=== PATIENT | male | born 1990 | race Caucasian/White ===

== ENCOUNTER 2017-01-12 19:29 | Inpatient (IN) ==
[2017-01-12 19:49] LABS: Bilirubin,Urine Negative (Negative); Blood,Urine Negative (Negative); Clarity,Urine Clear (Clear); Color,Urine Yellow (Yellow); Glucose,Urine (UA) Normal (Normal); Ketones,Urine 15 mg/dL (Negative); Leukocyte Esterase,Urine Negative (Negative); Nitrite,Urine Negative (Negative); Protein,Urine 30 mg/dL (Neg-Trace); Specific Gravity,Urine 1.024 (1.010-1.025); Urobilinogen,Urine Normal (Normal)
[2017-01-12 19:51] LABS: Bacteria,Urine None Seen per hpf (None-Few); Hyaline Casts,Urine None Seen per lpf (None-Few); Squamous Epithelial Cell,Urine Moderate per lpf (None-Few); WBC,Urine 0-3 per hpf (0-3)
[2017-01-12 19:56] LABS: Amphetamine Screen,Urine Negative ng/mL (Cutoff=1000); Barbiturate Screen,Urine Negative ng/mL (Cutoff=200); Benzodiazepines Screen,Urine Negative ng/mL (Cutoff=200); Cannabinoid Screen,Urine Negative ng/mL (Cutoff = 50); Cocaine Screen,Urine Negative ng/mL (Cutoff= 300); Opiate Screen,Urine Negative ng/mL (Cutoff=300); Phencyclidine Screen,Urine Negative ng/mL (Cutoff=25)
[2017-01-12 20:28] LABS: Basophils % 0.4 %; Eosinophils % 0.2 %; Hematocrit 46.3 % (37.5-50.1); Hemoglobin 15.4 g/dL (12.9-16.9); Immature Granulocytes % 0.7 % (0-4); Lymphocytes # 1.8 K/mcL (0.6-4.6); Lymphocytes % 16.9 %; Mean Corpuscular HGB Conc 33.3 g/dL (31.6-35.5); Mean Corpuscular Hemoglobin 29.7 pg (28.0-33.3); Mean Corpuscular Volume 89.2 fL (83.0-100.0); Mean Platelet Volume 8.8 fL (9.4-12.4); Monocytes # 1.2 K/mcL (0.0-1.3); Monocytes % 11.4 %; Neutrophils # 7.6 K/mcL (1.6-8.9); Platelet Count 276 K/mcL (140-400); Red Blood Count 5.19 M/mcL (4.19-5.50); Red Cell Distribution Width 12.5 % (11.5-14.5); Segmented Neutrophils % 70.4 %
[2017-01-12 20:37] LABS: BUN/Creatinine Ratio 15 (6-26); Blood Urea Nitrogen 14 mg/dL (8-26); Calcium 10.4 mg/dL (8.6-10.8); Carbon Dioxide 21 mEq/L (19-29); Chloride 103 mEq/L (98-109); Glucose 87 mg/dL (70-99); Osmolality,Calculated 286 (280-300); Potassium 3.8 mEq/L (3.5-4.5); Sodium 138 mEq/L (136-145); eGFR For African Americans > 60 (> 60); eGFR For Non-African Americans > 60 (> 60)
[2017-01-12 20:38] LABS: Acetaminophen < 1.0 mcg/mL (10-30); Ethanol < 10 mg/dL (0-10); Salicylate < 5.0 mg/dL (15-30)
--- NOTE | 2017-01-12 22:00 | Emergency Department Note ---
Disposition Clinical Impression: Acute psychosis Disposition: Admitted As Inpatient Condition: Good Psych HPI - General Chief Complaint: ED Psychiatric Symptoms Stated Complaint: Psych evaluation Time Seen by Provider: 01/12/17 19:38 Source: patient, EMS Limitations: altered mental status Nursing Notes Reviewed: Yes Vital Signs Reviewed: Yes - History of Present Illness HPI Narrative: 26-year-old male brought in by family for concerns of acute psychotic break. Patient has a long history of schizophrenia as well as bipolar disorder and anxiety. Patient was recently discharged from an inpatient psych facility within the past few days. Family states the patient started speaking with a grandfather as well as starting to get agitated with family members. Patient denies suicidal or homicidal ideation. Patient has apparently become aggressive during his psychotic breaks in the past. - Related Data Home Medications Medication Instructions Recorded Confirmed Benztropine [Cogentin] 1 mg PO BID 01/12/17 01/13/17 Cholecalciferol (Vitamin D3) 5,000 unit PO DAILY 01/12/17 01/13/17 [Vitamin D3] Divalproex (12 HR) [Depakote (12 1,000 mg PO BID 01/12/17 01/13/17 HR)] [place] Carbonate 600 mg PO BID 01/12/17 01/13/17 Divalproex Sodium [Depakote] 1,250 mg PO HS 01/13/17 01/13/17 Esomeprazole Magnesium [Nexium] 20 mg PO DAILY 01/13/17 01/13/17 Melatonin 3 mg PO HS 01/13/17 01/13/17 Metoprolol [Lopressor] 50 mg PO BID 01/13/17 01/13/17 Mv-Mn/FA/Vit K/Lycop/Lut/Coq10 1 cap PO DAILY 01/13/17 01/13/17 [Daily Multivitamin Capsule] RisperiDONE [Risperdal] 4 mg PO BID 01/13/17 01/13/17 Allergies Allergy/AdvReac Type Severity Reaction Status Date / Time No Known Allergies Allergy Verified 01/12/17 19:59 All systems ED: reviewed and negative except as stated. Constitutional: Denies: fever, chills, weakness, weight change Cardiovascular: Denies: chest pain, palpitations, dyspnea on exertion Respiratory: Denies: cough, dyspnea, wheezes Gastrointestinal: Denies: abdominal pain, nausea, vomiting, diarrhea Musculoskeletal: Denies: back pain, neck pain Psychiatric: Reports: anxiety, auditory hallucinations, visual hallucinations. Denies: depression, suicidal thoughts, homicidal thoughts Past Medical History - Past Medical History Attestation: Yes The following information was validated with the patient. Source: patient Medical history: Reports: no medical history Psychiatric history: Reports: bipolar, schizophrenia - Social History Smoking Status: Never smoker Smokeless Tobacco Status: No Alcohol use: Reports: none Drug use: Reports: none Physical Exam General: Alert and in no acute distress Skin: Warm, dry, intact Head: Normocephalic and atraumatic Neck: Supple, trachea midline and no tenderness Cardiovascular: RRR, no murmur, normal perfusion Respiratory: CTAB, no wheezing, cough, or respiratory distress Musculoskeletal: Normal strength, no tenderness, swelling or deformity GI: Soft, nontender, nondistended. Bowel sounds present Neuro: No focal deficits noted on exam - General Limitations: altered mental status General appearance: alert, appears intoxicated Course Vital Signs Temperature 98.2 F 01/12/17 19:37 Pulse Rate 124 01/12/17 19:37 Respiratory Rate 16 01/12/17 19:37 Blood Pressure 169/110 01/12/17 19:37 O2 Sat by Pulse Oximetry 94 L 01/12/17 19:37 Temperature 98.2 F 01/14/17 08:27 Pulse Rate 101 01/14/17 08:27 Respiratory Rate 16 01/14/17 08:27 Blood Pressure 138/86 01/14/17 08:27 O2 Sat by Pulse Oximetry 95 01/13/17 06:38 Oxygen Delivery Oxygen Delivery Room Air Psych - MDM Narrative Medical decision making narrative: Patient medically cleared and waiting to be seen by behavioral health. - Medical Records Medical records reviewed: Yes I reviewed the patient's medical records. - Lab Data Lab results reviewed: Yes I reviewed the patient's lab results. Result diagrams: 01/12/17 20:00 01/12/17 20:00 Lab Results 01/12/17 01/12/17 01/12/17 Range/Units 19:36 19:36 20:00 WBC 10.7 (4.3-11.1) K/mcL RBC 5.19 (4.19-5.50) M/mcL Hgb 15.4 (12.9-16.9) g/dL Hct 46.3 (37.5-50.1) % MCV 89.2 (83.0-100.0) fL MCH 29.7 (28.0-33.3) pg MCHC 33.3 (31.6-35.5) g/dL RDW 12.5 (11.5-14.5) % Plt Count 276 (140-400) K/mcL MPV 8.8 L (9.4-12.4) fL Immature Gran % 0.7 (0-4) % Seg Neutrophils % 70.4 % Lymphocytes % 16.9 % Monocytes % 11.4 % Eosinophils % 0.2 % Basophils % 0.4 % Neutrophils # 7.6 (1.6-8.9) K/mcL Lymphocytes # 1.8 (0.6-4.6) K/mcL Monocytes # 1.2 (0.0-1.3) K/mcL Eosinophils # 0.0 (0.0-0.6) K/mcL Basophils # 0.0 (0.0-0.2) K/mcL Sodium (136-145) mEq/L Potassium (3.5-4.5) mEq/L Chloride (98-109) mEq/L Carbon Dioxide (19-29) mEq/L BUN (8-26) mg/dL Creatinine (0.72-1.25) mg/dL Est GFR ( Amer) (> 60) Est GFR (Non-Af Amer) (> 60) BUN/Creatinine Ratio (6-26) Glucose (70-99) mg/dL Calculated Osmolality (280-300) Calcium (8.6-10.8) mg/dL Urine Color Yellow (Yellow) Urine Clarity Clear (Clear) Urine pH 6.0 (5.0-8.0) pH Units Ur Specific [place] 1.024 (1.010-1.025) Urine Protein 30 H (Neg-Trace) mg/dL Urine Glucose (UA) Normal (Normal) mg/dL Urine Ketones 15 H (Negative) mg/dL Urine Blood Negative (Negative) Urine Nitrite Negative (Negative) Urine Bilirubin Negative (Negative) Urine Urobilinogen Normal (Normal) mg/dL Ur Leukocyte Esterase Negative (Negative) Urine Microscopic RBC 3-5 H (0-3) per hpf Urine Microscopic WBC 0-3 (0-3) per hpf Ur Squamous Epith Cells Moderate H (None-Few) per lpf Urine Bacteria None Seen (None-Few) per hpf Hyaline Casts None Seen (None-Few) per lpf Salicylates (15-30) mg/dL Urine Opiates Screen Negative (Rhlmly=705) ng/mL Acetaminophen (10-30) mcg/mL Ur Barbiturates Screen Negative (Bmcxkz=166) ng/mL Valproic Acid (50-100) mcg/mL Ur Phencyclidine Scrn Negative (Cutoff=25) ng/mL Ur Amphetamines Screen Negative (Zwdsjl=1341) ng/mL U Benzodiazepines Scrn Negative (Hmwiwm=655) ng/mL [place] (0.6-1.2) mEq/L Urine Cocaine Screen Negative (Cutoff= 300) ng/mL U Marijuana (THC) Screen Negative (Cutoff = 50) ng/mL Ethyl Alcohol (0-10) mg/dL 01/12/17 01/12/17 Range/Units 20:00 20:00 WBC (4.3-11.1) K/mcL RBC (4.19-5.50) M/mcL Hgb (12.9-16.9) g/dL Hct (37.5-50.1) % MCV (83.0-100.0) fL MCH (28.0-33.3) pg MCHC (31.6-35.5) g/dL RDW (11.5-14.5) % Plt Count (140-400) K/mcL MPV (9.4-12.4) fL Immature Gran % (0-4) % Seg Neutrophils % % Lymphocytes % % Monocytes % % Eosinophils % % Basophils % % Neutrophils # (1.6-8.9) K/mcL Lymphocytes # (0.6-4.6) K/mcL Monocytes # (0.0-1.3) K/mcL Eosinophils # (0.0-0.6) K/mcL Basophils # (0.0-0.2) K/mcL Sodium 138 (136-145) mEq/L Potassium 3.8 (3.5-4.5) mEq/L Chloride 103 (98-109) mEq/L Carbon Dioxide 21 (19-29) mEq/L BUN 14 (8-26) mg/dL Creatinine 0.93 (0.72-1.25) mg/dL Est GFR ( Amer) > 60 (> 60) Est GFR (Non-Af Amer) > 60 (> 60) BUN/Creatinine Ratio 15 (6-26) Glucose 87 (70-99) mg/dL Calculated Osmolality 286 (280-300) Calcium 10.4 (8.6-10.8) mg/dL Urine Color (Yellow) Urine Clarity (Clear) Urine pH (5.0-8.0) pH Units Ur Specific [place] (1.010-1.025) Urine Protein (Neg-Trace) mg/dL Urine Glucose (UA) (Normal) mg/dL Urine Ketones (Negative) mg/dL Urine Blood (Negative) Urine Nitrite (Negative) Urine Bilirubin (Negative) Urine Urobilinogen (Normal) mg/dL Ur Leukocyte Esterase (Negative) Urine Microscopic RBC (0-3) per hpf Urine Microscopic WBC (0-3) per hpf Ur Squamous Epith Cells (None-Few) per lpf Urine Bacteria (None-Few) per hpf Hyaline Casts (None-Few) per lpf Salicylates < 5.0 L (15-30) mg/dL Urine Opiates Screen (Pyhawo=826) ng/mL Acetaminophen < 1.0 L (10-30) mcg/mL Ur Barbiturates Screen (Gnbrua=451) ng/mL Valproic Acid 58.55 (50-100) mcg/mL Ur Phencyclidine Scrn (Cutoff=25) ng/mL Ur Amphetamines Screen (Pzrnbk=1122) ng/mL U Benzodiazepines Scrn (Lojfer=722) ng/mL [place] 0.4 L (0.6-1.2) mEq/L Urine Cocaine Screen (Cutoff= 300) ng/mL U Marijuana (THC) Screen (Cutoff = 50) ng/mL Ethyl Alcohol < 10 (0-10) mg/dL Psychiatric Medical Clearance - Medical Clearance Checklist Medical History: No Social History Section defined Current Vitals: Last Vital Signs Temp 98.2 F 01/14/17 08:27 Pulse 101 01/14/17 08:27 Resp 16 01/14/17 08:27 BP 138/86 01/14/17 08:27 Pulse Ox 95 01/13/17 06:38 Abnormal Labs: Abnormal lab results MPV 8.8 fL (9.4-12.4) L 01/12/17 20:00 Urine Protein 30 mg/dL (Neg-Trace) H 03/20/17 19:36 Urine Ketones 15 mg/dL (Negative) H 01/12/17 19:36 Urine Microscopic RBC 3-5 per hpf (0-3) H 01/12/17 19:36 Ur Squamous Epith Cells Moderate per lpf (None-Few) H 01/12/17 19:36 Salicylates < 5.0 mg/dL (15-30) L 01/12/17 20:00 Acetaminophen < 1.0 mcg/mL (10-30) L 01/12/17 20:00 [place] 0.4 mEq/L (0.6-1.2) L 01/12/17 20:00 Statement of Medical Clearance: I have evaluated the patient, reviewed diagnostic information, and certify that the patient's medical condition is sufficiently stable that transfer to the psychiatric unit does not pose a significant risk of deterioration.
[2017-01-12 23:09] LABS: Valproate 58.55 mcg/mL (50-100)
[2017-01-13] MEDS ORDERED: Tdap (Boostrix) Vaccine 0.5 ML SYRINGE IM ONE (09:41)
[2017-01-13] MEDS ORDERED: cephALEXin 250 MG CAPSULE PO ONE (09:42)
--- NOTE | 2017-01-13 09:49 | Emergency Department Note ---
Disposition Clinical Impression: Acute psychosis Disposition: Admitted As Inpatient Condition: Good Psych HPI - General Chief Complaint: ED Psychiatric Symptoms Stated Complaint: Psych evaluation Time Seen by Provider: 01/12/17 19:38 Source: patient, EMS - Related Data Home Medications Medication Instructions Recorded Confirmed Benztropine [Cogentin] 1 mg PO BID 01/12/17 01/13/17 Cholecalciferol (Vitamin D3) 5,000 unit PO DAILY 01/12/17 01/13/17 [Vitamin D3] Divalproex (12 HR) [Depakote (12 1,000 mg PO BID 01/12/17 01/13/17 HR)] [place] Carbonate 600 mg PO BID 01/12/17 01/13/17 Divalproex Sodium [Depakote] 1,250 mg PO HS 01/13/17 01/13/17 Esomeprazole Magnesium [Nexium] 20 mg PO DAILY 01/13/17 01/13/17 Melatonin 3 mg PO HS 01/13/17 01/13/17 Metoprolol [Lopressor] 50 mg PO BID 01/13/17 01/13/17 Mv-Mn/FA/Vit K/Lycop/Lut/Coq10 1 cap PO DAILY 01/13/17 01/13/17 [Daily Multivitamin Capsule] RisperiDONE [Risperdal] 4 mg PO BID 01/13/17 01/13/17 Allergies Allergy/AdvReac Type Severity Reaction Status Date / Time No Known Allergies Allergy Verified 01/12/17 19:59 Constitutional: Denies: fever, chills, weakness, weight change Cardiovascular: Denies: chest pain, palpitations, dyspnea on exertion Respiratory: Denies: cough, dyspnea, wheezes Gastrointestinal: Denies: abdominal pain, nausea, vomiting, diarrhea Musculoskeletal: Denies: back pain, neck pain Psychiatric: Reports: anxiety, auditory hallucinations, visual hallucinations. Denies: depression, suicidal thoughts, homicidal thoughts Past Medical History - Past Medical History Medical history: Reports: no medical history Psychiatric history: Reports: bipolar, schizophrenia - Social History Smoking Status: Never smoker Smokeless Tobacco Status: No Alcohol use: Reports: none Drug use: Reports: none Physical Exam - General Limitations: altered mental status General appearance: alert, appears intoxicated Course Course Narrative: Assumed care of this patient from Theo Tee PA-C at 06:00. Report received. The patient has been seen by [facility] but the Psychiatrist did not feel that the patient required admission. Plan was to have the patient evaluated by the [facility] and discharged to home with his mom or to a homeless halfway if his mom is unable to care for him. Patient has been seen by the [facility] Leni. She is very concerned about this patient's apparent acute psychosis. She has spoken with his family as well. She recommends that I consult [facility] again. Vital Signs Temperature 98.2 F 01/12/17 19:37 Pulse Rate 124 01/12/17 19:37 Respiratory Rate 16 01/12/17 19:37 Blood Pressure 169/110 01/12/17 19:37 O2 Sat by Pulse Oximetry 94 L 01/12/17 19:37 Temperature 97.6 F 01/16/17 08:47 Pulse Rate 94 01/16/17 08:47 Respiratory Rate 18 01/16/17 08:47 Blood Pressure 122/78 01/16/17 08:47 O2 Sat by Pulse Oximetry 95 01/13/17 06:38 Oxygen Delivery Oxygen Delivery Room Air Psych - Lab Data Result diagrams: 01/12/17 20:00 01/16/17 03:12 Lab Results 01/12/17 01/12/17 01/12/17 Range/Units 19:36 19:36 20:00 WBC 10.7 (4.3-11.1) K/mcL RBC 5.19 (4.19-5.50) M/mcL Hgb 15.4 (12.9-16.9) g/dL Hct 46.3 (37.5-50.1) % MCV 89.2 (83.0-100.0) fL MCH 29.7 (28.0-33.3) pg MCHC 33.3 (31.6-35.5) g/dL RDW 12.5 (11.5-14.5) % Plt Count 276 (140-400) K/mcL MPV 8.8 L (9.4-12.4) fL Immature Gran % 0.7 (0-4) % Seg Neutrophils % 70.4 % Lymphocytes % 16.9 % Monocytes % 11.4 % Eosinophils % 0.2 % Basophils % 0.4 % Neutrophils # 7.6 (1.6-8.9) K/mcL Lymphocytes # 1.8 (0.6-4.6) K/mcL Monocytes # 1.2 (0.0-1.3) K/mcL Eosinophils # 0.0 (0.0-0.6) K/mcL Basophils # 0.0 (0.0-0.2) K/mcL Sodium (136-145) mEq/L Potassium (3.5-4.5) mEq/L Chloride (98-109) mEq/L Carbon Dioxide (19-29) mEq/L BUN (8-26) mg/dL Creatinine (0.72-1.25) mg/dL Est GFR ( Amer) (> 60) Est GFR (Non-Af Amer) (> 60) BUN/Creatinine Ratio (6-26) Glucose (70-99) mg/dL Calculated Osmolality (280-300) Calcium (8.6-10.8) mg/dL Urine Color Yellow (Yellow) Urine Clarity Clear (Clear) Urine pH 6.0 (5.0-8.0) pH Units Ur Specific [place] 1.024 (1.010-1.025) Urine Protein 30 H (Neg-Trace) mg/dL Urine Glucose (UA) Normal (Normal) mg/dL Urine Ketones 15 H (Negative) mg/dL Urine Blood Negative (Negative) Urine Nitrite Negative (Negative) Urine Bilirubin Negative (Negative) Urine Urobilinogen Normal (Normal) mg/dL Ur Leukocyte Esterase Negative (Negative) Urine Microscopic RBC 3-5 H (0-3) per hpf Urine Microscopic WBC 0-3 (0-3) per hpf Ur Squamous Epith Cells Moderate H (None-Few) per lpf Urine Bacteria None Seen (None-Few) per hpf Hyaline Casts None Seen (None-Few) per lpf Salicylates (15-30) mg/dL Urine Opiates Screen Negative (Paeffc=787) ng/mL Acetaminophen (10-30) mcg/mL Ur Barbiturates Screen Negative (Rbuubo=463) ng/mL Valproic Acid (50-100) mcg/mL Ur Phencyclidine Scrn Negative (Cutoff=25) ng/mL Ur Amphetamines Screen Negative (Thynth=2952) ng/mL U Benzodiazepines Scrn Negative (Flsgdz=133) ng/mL [place] (0.6-1.2) mEq/L Urine Cocaine Screen Negative (Cutoff= 300) ng/mL U Marijuana (THC) Screen Negative (Cutoff = 50) ng/mL Ethyl Alcohol (0-10) mg/dL 01/12/17 01/12/17 Range/Units 20:00 20:00 WBC (4.3-11.1) K/mcL RBC (4.19-5.50) M/mcL Hgb (12.9-16.9) g/dL Hct (37.5-50.1) % MCV (83.0-100.0) fL MCH (28.0-33.3) pg MCHC (31.6-35.5) g/dL RDW (11.5-14.5) % Plt Count (140-400) K/mcL MPV (9.4-12.4) fL Immature Gran % (0-4) % Seg Neutrophils % % Lymphocytes % % Monocytes % % Eosinophils % % Basophils % % Neutrophils # (1.6-8.9) K/mcL Lymphocytes # (0.6-4.6) K/mcL Monocytes # (0.0-1.3) K/mcL Eosinophils # (0.0-0.6) K/mcL Basophils # (0.0-0.2) K/mcL Sodium 138 (136-145) mEq/L Potassium 3.8 (3.5-4.5) mEq/L Chloride 103 (98-109) mEq/L Carbon Dioxide 21 (19-29) mEq/L BUN 14 (8-26) mg/dL Creatinine 0.93 (0.72-1.25) mg/dL Est GFR ( Amer) > 60 (> 60) Est GFR (Non-Af Amer) > 60 (> 60) BUN/Creatinine Ratio 15 (6-26) Glucose 87 (70-99) mg/dL Calculated Osmolality 286 (280-300) Calcium 10.4 (8.6-10.8) mg/dL Urine Color (Yellow) Urine Clarity (Clear) Urine pH (5.0-8.0) pH Units Ur Specific [place] (1.010-1.025) Urine Protein (Neg-Trace) mg/dL Urine Glucose (UA) (Normal) mg/dL Urine Ketones (Negative) mg/dL Urine Blood (Negative) Urine Nitrite (Negative) Urine Bilirubin (Negative) Urine Urobilinogen (Normal) mg/dL Ur Leukocyte Esterase (Negative) Urine Microscopic RBC (0-3) per hpf Urine Microscopic WBC (0-3) per hpf Ur Squamous Epith Cells (None-Few) per lpf Urine Bacteria (None-Few) per hpf Hyaline Casts (None-Few) per lpf Salicylates < 5.0 L (15-30) mg/dL Urine Opiates Screen (Zqlvuy=954) ng/mL Acetaminophen < 1.0 L (10-30) mcg/mL Ur Barbiturates Screen (Azhwrt=442) ng/mL Valproic Acid 58.55 (50-100) mcg/mL Ur Phencyclidine Scrn (Cutoff=25) ng/mL Ur Amphetamines Screen (Msuqfy=3270) ng/mL U Benzodiazepines Scrn (Lengyl=180) ng/mL [place] 0.4 L (0.6-1.2) mEq/L Urine Cocaine Screen (Cutoff= 300) ng/mL U Marijuana (THC) Screen (Cutoff = 50) ng/mL Ethyl Alcohol < 10 (0-10) mg/dL Psychiatric Medical Clearance - Medical Clearance Checklist Medical History: No Social History Section defined Current Vitals: Last Vital Signs Temp 97.6 F 01/16/17 08:47 Pulse 94 01/16/17 08:47 Resp 18 01/16/17 08:47 BP 122/78 01/16/17 08:47 Pulse Ox 95 01/13/17 06:38 Abnormal Labs: Abnormal lab results MPV 8.8 fL (9.4-12.4) L 01/12/17 20:00 POC Glucose 115 (58-89) H 01/16/17 08:25 HDL Cholesterol 36 mg/dL (40-59) L 01/16/17 03:12 Urine Protein 30 mg/dL (Neg-Trace) H 01/12/17 19:36 Urine Ketones 15 mg/dL (Negative) H 01/12/17 19:36 Urine Microscopic RBC 3-5 per hpf (0-3) H 01/12/17 19:36 Ur Squamous Epith Cells Moderate per lpf (None-Few) H 01/12/17 19:36 Salicylates < 5.0 mg/dL (15-30) L 01/12/17 20:00 Acetaminophen < 1.0 mcg/mL (10-30) L 01/12/17 20:00 [place] 0.4 mEq/L (0.6-1.2) L 01/12/17 20:00 Statement of Medical Clearance: I have evaluated the patient, reviewed diagnostic information, and certify that the patient's medical condition is sufficiently stable that transfer to the psychiatric unit does not pose a significant risk of deterioration.
--- NOTE | 2017-01-13 10:27 | Emergency Department Note ---
Disposition Clinical Impression: Acute psychosis Disposition: Admitted As Inpatient Condition: Good General Adult HPI - General Chief complaint: ED Psychiatric Symptoms Stated complaint: Psych evaluation Time Seen by Provider: 01/12/17 19:38 Source: patient, EMS Limitations: altered mental status - History of Present Illness Pain Scale: 0 - Related Data Home Medications Medication Instructions Recorded Confirmed Benztropine [Cogentin] 1 mg PO BID 01/12/17 01/13/17 Cholecalciferol (Vitamin D3) 5,000 unit PO DAILY 01/12/17 01/13/17 [Vitamin D3] Divalproex (12 HR) [Depakote (12 1,000 mg PO BID 01/12/17 01/13/17 HR)] [place] Carbonate 600 mg PO BID 01/12/17 01/13/17 Divalproex Sodium [Depakote] 1,250 mg PO HS 01/13/17 01/13/17 Esomeprazole Magnesium [Nexium] 20 mg PO DAILY 01/13/17 01/13/17 Melatonin 3 mg PO HS 01/13/17 01/13/17 Metoprolol [Lopressor] 50 mg PO BID 01/13/17 01/13/17 Mv-Mn/FA/Vit K/Lycop/Lut/Coq10 1 cap PO DAILY 01/13/17 01/13/17 [Daily Multivitamin Capsule] RisperiDONE [Risperdal] 4 mg PO BID 01/13/17 01/13/17 Allergies Allergy/AdvReac Type Severity Reaction Status Date / Time No Known Allergies Allergy Verified 01/12/17 19:59 Constitutional: Denies: fever, chills, weakness, weight change Cardiovascular: Denies: chest pain, palpitations, dyspnea on exertion Respiratory: Denies: cough, dyspnea, wheezes Gastrointestinal: Denies: abdominal pain, nausea, vomiting, diarrhea Musculoskeletal: Denies: back pain, neck pain Psychiatric: Reports: anxiety, auditory hallucinations, visual hallucinations. Denies: depression, suicidal thoughts, homicidal thoughts Past Medical History - Past Medical History Medical history: Reports: no medical history Psychiatric history: Reports: bipolar, schizophrenia - Social History Smoking Status: Never smoker Smokeless Tobacco Status: No Alcohol use: Reports: none Drug use: Reports: none Physical Exam - General Limitations: altered mental status General appearance: alert, appears intoxicated Course - Reevaluation(s) Reevaluation #1: 26-year-old with active psychosis was been here for several hours awaiting a bed at the [facility]. Continues to actively hallucinates and with paranoia delusions. Time: 10:26 Vital Signs Temperature 98.2 F 01/12/17 19:37 Pulse Rate 124 01/12/17 19:37 Respiratory Rate 16 01/12/17 19:37 Blood Pressure 169/110 01/12/17 19:37 O2 Sat by Pulse Oximetry 94 L 01/12/17 19:37 Temperature 98.4 F 01/13/17 11:55 Pulse Rate 96 01/13/17 11:55 Respiratory Rate 16 01/13/17 12:05 Blood Pressure 158/95 01/13/17 12:05 O2 Sat by Pulse Oximetry 95 01/13/17 06:38 Oxygen Delivery Oxygen Delivery Room Air Medical Decision Making - Lab Data Result diagrams: 01/12/17 20:00 01/12/17 20:00 Lab Results 01/12/17 01/12/17 01/12/17 Range/Units 19:36 19:36 20:00 WBC 10.7 (4.3-11.1) K/mcL RBC 5.19 (4.19-5.50) M/mcL Hgb 15.4 (12.9-16.9) g/dL Hct 46.3 (37.5-50.1) % MCV 89.2 (83.0-100.0) fL MCH 29.7 (28.0-33.3) pg MCHC 33.3 (31.6-35.5) g/dL RDW 12.5 (11.5-14.5) % Plt Count 276 (140-400) K/mcL MPV 8.8 L (9.4-12.4) fL Immature Gran % 0.7 (0-4) % Seg Neutrophils % 70.4 % Lymphocytes % 16.9 % Monocytes % 11.4 % Eosinophils % 0.2 % Basophils % 0.4 % Neutrophils # 7.6 (1.6-8.9) K/mcL Lymphocytes # 1.8 (0.6-4.6) K/mcL Monocytes # 1.2 (0.0-1.3) K/mcL Eosinophils # 0.0 (0.0-0.6) K/mcL Basophils # 0.0 (0.0-0.2) K/mcL Sodium (136-145) mEq/L Potassium (3.5-4.5) mEq/L Chloride (98-109) mEq/L Carbon Dioxide (19-29) mEq/L BUN (8-26) mg/dL Creatinine (0.72-1.25) mg/dL Est GFR ( Amer) (> 60) Est GFR (Non-Af Amer) (> 60) BUN/Creatinine Ratio (6-26) Glucose (70-99) mg/dL Calculated Osmolality (280-300) Calcium (8.6-10.8) mg/dL Urine Color Yellow (Yellow) Urine Clarity Clear (Clear) Urine pH 6.0 (5.0-8.0) pH Units Ur Specific [place] 1.024 (1.010-1.025) Urine Protein 30 H (Neg-Trace) mg/dL Urine Glucose (UA) Normal (Normal) mg/dL Urine Ketones 15 H (Negative) mg/dL Urine Blood Negative (Negative) Urine Nitrite Negative (Negative) Urine Bilirubin Negative (Negative) Urine Urobilinogen Normal (Normal) mg/dL Ur Leukocyte Esterase Negative (Negative) Urine Microscopic RBC 3-5 H (0-3) per hpf Urine Microscopic WBC 0-3 (0-3) per hpf Ur Squamous Epith Cells Moderate H (None-Few) per lpf Urine Bacteria None Seen (None-Few) per hpf Hyaline Casts None Seen (None-Few) per lpf Salicylates (15-30) mg/dL Urine Opiates Screen Negative (Mfzcuz=670) ng/mL Acetaminophen (10-30) mcg/mL Ur Barbiturates Screen Negative (Wtlhpl=874) ng/mL Valproic Acid (50-100) mcg/mL Ur Phencyclidine Scrn Negative (Cutoff=25) ng/mL Ur Amphetamines Screen Negative (Fxzknc=3629) ng/mL U Benzodiazepines Scrn Negative (Otahmz=597) ng/mL [place] (0.6-1.2) mEq/L Urine Cocaine Screen Negative (Cutoff= 300) ng/mL U Marijuana (THC) Screen Negative (Cutoff = 50) ng/mL Ethyl Alcohol (0-10) mg/dL 01/12/17 01/12/17 Range/Units 20:00 20:00 WBC (4.3-11.1) K/mcL RBC (4.19-5.50) M/mcL Hgb (12.9-16.9) g/dL Hct (37.5-50.1) % MCV (83.0-100.0) fL MCH (28.0-33.3) pg MCHC (31.6-35.5) g/dL RDW (11.5-14.5) % Plt Count (140-400) K/mcL MPV (9.4-12.4) fL Immature Gran % (0-4) % Seg Neutrophils % % Lymphocytes % % Monocytes % % Eosinophils % % Basophils % % Neutrophils # (1.6-8.9) K/mcL Lymphocytes # (0.6-4.6) K/mcL Monocytes # (0.0-1.3) K/mcL Eosinophils # (0.0-0.6) K/mcL Basophils # (0.0-0.2) K/mcL Sodium 138 (136-145) mEq/L Potassium 3.8 (3.5-4.5) mEq/L Chloride 103 (98-109) mEq/L Carbon Dioxide 21 (19-29) mEq/L BUN 14 (8-26) mg/dL Creatinine 0.93 (0.72-1.25) mg/dL Est GFR ( Amer) > 60 (> 60) Est GFR (Non-Af Amer) > 60 (> 60) BUN/Creatinine Ratio 15 (6-26) Glucose 87 (70-99) mg/dL Calculated Osmolality 286 (280-300) Calcium 10.4 (8.6-10.8) mg/dL Urine Color (Yellow) Urine Clarity (Clear) Urine pH (5.0-8.0) pH Units Ur Specific [place] (1.010-1.025) Urine Protein (Neg-Trace) mg/dL Urine Glucose (UA) (Normal) mg/dL Urine Ketones (Negative) mg/dL Urine Blood (Negative) Urine Nitrite (Negative) Urine Bilirubin (Negative) Urine Urobilinogen (Normal) mg/dL Ur Leukocyte Esterase (Negative) Urine Microscopic RBC (0-3) per hpf Urine Microscopic WBC (0-3) per hpf Ur Squamous Epith Cells (None-Few) per lpf Urine Bacteria (None-Few) per hpf Hyaline Casts (None-Few) per lpf Salicylates < 5.0 L (15-30) mg/dL Urine Opiates Screen (Dfstzw=257) ng/mL Acetaminophen < 1.0 L (10-30) mcg/mL Ur Barbiturates Screen (Osgdrl=228) ng/mL Valproic Acid 58.55 (50-100) mcg/mL Ur Phencyclidine Scrn (Cutoff=25) ng/mL Ur Amphetamines Screen (Wgxzwr=5186) ng/mL U Benzodiazepines Scrn (Gwndnk=703) ng/mL [place] 0.4 L (0.6-1.2) mEq/L Urine Cocaine Screen (Cutoff= 300) ng/mL U Marijuana (THC) Screen (Cutoff = 50) ng/mL Ethyl Alcohol < 10 (0-10) mg/dL
[2017-01-13] MEDS ORDERED: Haloperidol Lactate 5 MG/ML VIAL IM PRN (11:24)
[2017-01-13] MEDS ORDERED: *HR* LORazepam 2 MG/ML VIAL IM PRN (11:24)
[2017-01-13] MEDS ORDERED: MOM Conc 10 ML UD.LIQ PO PRN (11:24)
[2017-01-13] MEDS ORDERED: Divalproex (12 HR) 500 MG TABLET PO SCH (12:00)
[2017-01-13] MEDS ORDERED: Metoprolol 100 MG TABLET PO SCH (12:00)
[2017-01-13] MEDS: risperiDONE 1 MG TABLET PO SCH ×2 (12:48→20:08)
[2017-01-13] MEDS: Divalproex (12 HR) 500 MG TABLET PO SCH (12:49)
[2017-01-13] MEDS: Lithium Carbonate 300 MG CAPSULE PO SCH ×2 (12:49→19:48)
[2017-01-13] MEDS: Cholecalciferol (D-3) 1,000 UNIT TABLET PO SCH (12:50)
[2017-01-13] MEDS: Multivit/Ca/Min/Fe/FA 1 TAB TABLET PO SCH (12:50)
[2017-01-13] MEDS: *HR* LORazepam 1 MG TABLET PO PRN (19:49)
[2017-01-13] MEDS: Divalproex (12 HR) 250 MG TABLET PO SCH (19:49)
[2017-01-13] MEDS: Melatonin 3 MG TABLET PO SCH (20:23)
[2017-01-14] MEDS: Cholecalciferol (D-3) 1,000 UNIT TABLET PO SCH (08:31)
[2017-01-14] MEDS: risperiDONE 1 MG TABLET PO SCH ×2 (08:31→20:48)
[2017-01-14] MEDS: Divalproex (12 HR) 500 MG TABLET PO SCH ×2 (08:32→15:10)
[2017-01-14] MEDS: Multivit/Ca/Min/Fe/FA 1 TAB TABLET PO SCH (08:32)
[2017-01-14] MEDS: Lithium Carbonate 300 MG CAPSULE PO SCH ×2 (08:32→20:47)
[2017-01-14] MEDS: Mag Hydrox/Al Hydrox/Simeth 30 ML UDC PO PRN (08:43)
[2017-01-14] MEDS: Acetaminophen 325 MG TABLET PO PRN (08:43)
--- NOTE | 2017-01-14 10:39 | Psychiatry History & Physical ---
Date of Encounter: 01/14/17 Time of Encounter: 10:15 History of Present Illness Patient Stated Chief Complaint: I have no place to go, I do not know Medicare Admission Attestation: For traditional Medicare patients the provided hospital inpatient services are reasonable and necessary and in the case of services not specified as inpatient -only under 42 CFR 419.22 (n), that they are appropriately provided as inpatient services in accordance 42 CFR 412.3. For Critical Access Hospital the patient may reasonably be expected to be discharged or transferred to a hospital within 96 hours after admission to the Critical Access Hospital. Admitted From: Emergency Dept History of Present Illness: Mr. Prado is a 26 year old male admitted from the emergency room for evaluation of psychosis. Patient displayed bizarre delusion, restorationist preoccupation, paranoia and delusions, bizarre behavior. Patient has been treated in a mental health facility in [place] and recently came back to the area, family reported that he is not stable on his medication. Patient did not endorse any suicidal or homicidal ideation. Patient has a previous psychiatric admission to [facility] when he was 17 years old in April 2007. He was diagnosed with mood disorder NOS polysubstance abuse and attention deficit disorder. He was treated at this time was Sj. Patient is a high school graduate and unemployed. He denies any use of drugs or substance or alcohol. Past Med Surg Social Fam HX - Past Medical History Medical history: no medical history - Past Psychiatric History Psychiatric history: Reports: ADHD, bipolar, previous psychiatric hospitalization, other (Mood disorder, substance abuse THC) Past psychiatric history details: Hospitalized at [place] in April 2007 Family psychiatric history: Unknown Family History of Suicide: Unknown - Social History Smoking Status: Never smoker Smokeless Tobacco Status: No Alcohol use: none Drug use: none Medications & Allergies Benztropine [Cogentin] 1 mg PO BID 01/12/17 [History] Cholecalciferol (Vitamin D3) [Vitamin D3] 5,000 unit PO DAILY 01/12/17 [History] Divalproex (12 HR) [Depakote (12 HR)] 1,000 mg PO BID 01/12/17 [History] [place] Carbonate 600 mg PO BID 01/12/17 [History] Divalproex Sodium [Depakote] 1,250 mg PO HS 01/13/17 [History] Esomeprazole Magnesium [Nexium] 20 mg PO DAILY 01/13/17 [History] Melatonin 3 mg PO HS 01/13/17 [History] Metoprolol [Lopressor] 50 mg PO BID 01/13/17 [History] Mv-Mn/FA/Vit K/Lycop/Lut/Coq10 [Daily Multivitamin Capsule] 1 cap PO DAILY 01/13 [History] RisperiDONE [Risperdal] 4 mg PO BID 01/13/17 [History] Allergies No Known Allergies Allergy (Verified 01/12/17 19:59) Review of Systems Psychiatric: Reports: other (Psychosis) Mental Status Exam Patient orientation: Yes Person, Yes Time, Yes Place Level of alertness: Alert Patient appearance: Disheveled, Bizarre, Obese Behavior: cooperative, restless, suspicious, distractible, impulsive, talkative Psychomotor activity: Increased Eye contact: Intense Contact Mood description: Elevated, Labile Affect description: labile, euphoric, incongruent with mood Speech pattern: Disorganized, Inappropriate to situation, Excessive, Pressured Speech volume: Loud Thought process: Tangential, Flight of Ideas, Thought Blocking, Disorganized Thought content: No Suicidal ideation, No Homicidal ideation, No Overt delusions Perceptual disturbances: No Auditory hallucinations, No Visual hallucinations Attention span: Unable to Focus Memory description: Immediate Impaired, Recent Impaired Patient reliability: Questionable Historian Intelligence estimate: Average Judgment: Limited Insight: Partial Results - Vital Signs Vital signs: Temp Pulse Resp BP Pulse Ox 98.2 F 101 16 138/86 95 01/14/17 08:27 01/14/17 08:27 01/14/17 08:27 01/14/17 08:27 01/13/17 06:38 - Labs Labs: Laboratory Last Values WBC 10.7 K/mcL (4.3-11.1) 01/12/17 20:00 RBC 5.19 M/mcL (4.19-5.50) 01/12/17 20:00 Hgb 15.4 g/dL (12.9-16.9) 01/12/17 20:00 Hct 46.3 % (37.5-50.1) 01/12/17 20:00 MCV 89.2 fL (83.0-100.0) 01/12/17 20:00 MCH 29.7 pg (28.0-33.3) 01/12/17 20:00 MCHC 33.3 g/dL (31.6-35.5) 01/12/17 20:00 RDW 12.5 % (11.5-14.5) 01/12/17 20:00 Plt Count 276 K/mcL (140-400) 01/12/17 20:00 MPV 8.8 fL (9.4-12.4) L 01/12/17 20:00 Immature Gran % 0.7 % (0-4) 01/12/17 20: Seg Neutrophils % 70.4 % 01/12/17 20:00 Lymphocytes % 16.9 % 01/12/17 20:00 Monocytes % 11.4 % 01/12/17 20:00 Eosinophils % 0.2 % 01/12/17 20: Basophils % 0.4 % 01/12/17 20:00 Neutrophils # 7.6 K/mcL (1.6-8.9) 01/12/17 20:00 Lymphocytes # 1.8 K/mcL (0.6-4.6) 01/12/17 20:00 Monocytes # 1.2 K/mcL (0.0-1.3) 01/12/17 20:00 Eosinophils # 0.0 K/mcL (0.0-0.6) 01/12/17 20:00 Basophils # 0.0 K/mcL (0.0-0.2) 01/12/17 20:00 Sodium 138 mEq/L (136-145) 01/12/17 20:00 Potassium 3.8 mEq/L (3.5-4.5) 01/12/17 20:00 Chloride 103 mEq/L (98-109) 01/12/17 20:00 Carbon Dioxide 21 mEq/L (19-29) 01/12/17 20:00 BUN 14 mg/dL (8-26) 01/12/17 20:00 Creatinine 0.93 mg/dL (0.72-1.25) 01/12/17 20:00 Est GFR ( Amer) > 60 (> 60) 01/12/17 20:00 Est GFR (Non-Af Amer) > 60 (> 60) 01/12/17 20:00 BUN/Creatinine Ratio 15 (6-26) 01/12/17 20:00 Glucose 87 mg/dL (70-99) 01/12/17 20:00 Calculated Osmolality 286 (280-300) 01/12/17 20:00 Calcium 10.4 mg/dL (8.6-10.8) 01/12/17 20:00 Urine Color Yellow (Yellow) 01/12/17 19:36 Urine Clarity Clear (Clear) 01/12/17 19:36 Urine pH 6.0 pH Units (5.0-8.0) 01/12/17 19:36 Ur Specific [place] 1.024 (1.010-1.025) 01/12/17 19:36 Urine Protein 30 mg/dL (Neg-Trace) H 01/12/17 19:36 Urine Glucose (UA) Normal mg/dL (Normal) 01/12/17 19:36 Urine Ketones 15 mg/dL (Negative) H 01/12/17 19:36 Urine Blood Negative (Negative) 01/12/17 19:36 Urine Nitrite Negative (Negative) 01/12/17 19:36 Urine Bilirubin Negative (Negative) 01/12/17 19:36 Urine Urobilinogen Normal mg/dL (Normal) 01/12/17 19:36 Ur Leukocyte Esterase Negative (Negative) 01/12/17 19:36 Urine Microscopic RBC 3-5 per hpf (0-3) H 01/12/17 19:36 Urine Microscopic WBC 0-3 per hpf (0-3) 01/12/17 19:36 Ur Squamous Epith Cells Moderate per lpf (None-Few) H 01/12/17 19:36 Urine Bacteria None Seen per hpf (None-Few) 01/12/17 19:36 Hyaline Casts None Seen per lpf (None-Few) 01/12/17 19:36 Salicylates < 5.0 mg/dL (15-30) L 01/12/17 20:00 Urine Opiates Screen Negative ng/mL (Upzgdp=048) 01/12/17 19:36 Acetaminophen < 1.0 mcg/mL (10-30) L 01/12/17 20:00 Ur Barbiturates Screen Negative ng/mL (Vresgg=550) 01/12/17 19:36 Valproic Acid 58.55 mcg/mL (50-100) 01/12/17 20:00 Ur Phencyclidine Scrn Negative ng/mL (Cutoff=25) 01/12/17 19:36 Ur Amphetamines Screen Negative ng/mL (Gcgzev=2070) 01/12/17 19:36 U Benzodiazepines Scrn Negative ng/mL (Kgqtpj=278) 01/12/17 19:36 [place] 0.4 mEq/L (0.6-1.2) L 01/12/17 20:00 Urine Cocaine Screen Negative ng/mL (Cutoff= 300) 01/12/17 19:36 U Marijuana (THC) Screen Negative ng/mL (Cutoff = 50) 01/12/17 19:36 Ethyl Alcohol < 10 mg/dL (0-10) 01/12/17 20:00 Assessment and Plan (1) Bipolar disorder with psychotic features Current visit: Yes Status: Acute Plan: Admit inpatient for safety and stabilization, Close observation, Suicide Precautions per unit protocol, Encourage participation in unit milieu, Group Therapy, Monitor sleep, Monitor appetite Risks, benefits, side effects, alternatives discussed w/pt: Yes Patient agreeable to treatment: Yes Estimated Length of Stay (Days): 5
[2017-01-14] MEDS: hydrOXYzine pamoate 25 MG CAPSULE PO PRN (11:20)
[2017-01-14] MEDS: Ibuprofen 800 MG TABLET PO PRN (13:34)
[2017-01-14] MEDS: *HR* LORazepam 1 MG TABLET PO PRN (15:12)
[2017-01-14] MEDS: Melatonin 3 MG TABLET PO SCH (20:48)
[2017-01-14] MEDS: Divalproex (12 HR) 250 MG TABLET PO SCH (20:51)
[2017-01-14] MEDS: traZODone 50 MG TABLET PO PRN (22:26)
[2017-01-15] MEDS: Mag Hydrox/Al Hydrox/Simeth 30 ML UDC PO PRN (04:54)
[2017-01-15] MEDS: Acetaminophen 325 MG TABLET PO PRN (05:11)
[2017-01-15] MEDS: *HR* LORazepam 1 MG TABLET PO PRN ×2 (05:12→15:12)
[2017-01-15] MEDS: risperiDONE 1 MG TABLET PO SCH ×2 (09:50→20:16)
[2017-01-15] MEDS: Multivit/Ca/Min/Fe/FA 1 TAB TABLET PO SCH (09:50)
[2017-01-15] MEDS: Cholecalciferol (D-3) 1,000 UNIT TABLET PO SCH (09:50)
[2017-01-15] MEDS: Divalproex (12 HR) 500 MG TABLET PO SCH ×2 (09:50→14:08)
[2017-01-15] MEDS: Lithium Carbonate 300 MG CAPSULE PO SCH ×3 (09:50→20:18)
[2017-01-15] MEDS ORDERED: Haloperidol Lactate 5 MG/ML VIAL IM PRN (11:10)
[2017-01-15] MEDS ORDERED: *HR* LORazepam 2 MG/ML VIAL IM PRN (11:12)
--- NOTE | 2017-01-15 13:41 | Psychiatry Progress Note ---
Date of Encounter: 01/15/17 Time of Encounter: 13:10 Subjective Interval history: Patient seen for follow-up. He continued to display psychotic and manic behavior. He yells and screams loudly and disturbed other patients. He talked to himself loudly. He is demanding medication and porch and shake and variety of vitamins from the staff and other patients that is not acceptable.. Is compliant with medication, he is showing flight of idea, loss associations, paranoid delusions and christianity preoccupation. He has no insight at this at this time and his judgment is impaired. Requests for probable cause hearing was submitted to continue his hospitalization. Medication and treatment plan is reviewed and updated. Review of Systems Psychiatric: Reports: auditory hallucinations, visual hallucinations, other ( Psychosis, paranoid delusions, christianity preoccupation) Objective: Exam Patient orientation: Yes Person, Yes Time, Yes Place Level of alertness: Alert Patient appearance: Disheveled, Bizarre, Obese Behavior: cooperative, restless, suspicious, distractible, impulsive, talkative , other (Intrusive and disruptive) Psychomotor activity: Increased Eye contact: Intense Contact Mood description: Elevated, Labile Affect description: labile, euphoric, incongruent with mood Speech pattern: Disorganized, Inappropriate to situation, Rambling, Excessive, Pressured Speech volume: Loud Thought process: Tangential, Flight of Ideas, Thought Blocking, Disorganized Thought content: No Suicidal ideation, No Homicidal ideation, Yes Overt delusions, Yes Paranoid delusion, Yes Rastafarian delusion, Yes Obsessive thoughts Perceptual disturbances: Yes Auditory hallucinations, Yes Visual hallucinations Judgment: Limited Insight: Partial Results - Vital Signs Vital Signs: Temp Pulse Resp BP Pulse Ox 98.4 F 83 24 145/74 95 01/15/17 12:25 01/15/17 12:25 01/15/17 12:25 01/15/17 12:25 01/13/17 06:38 Assessment and Plan (1) Bipolar disorder with psychotic features Current visit: Yes Status: Acute Plan: Continue hospitalization, Close observation, Suicide Precautions per unit protocol, Encourage participation in unit milieu, Group Therapy, Monitor sleep, Monitor appetite Additional Plan: Will add Abilify 20 mg daily, we will increase lithium to 600 mg 3 times a day and schedule Librium and Depakote level on 01/17/2017 Risks, benefits, side effects, alternatives discussed w/pt: Yes Patient agreeable to treatment: Yes Consult Discharge Plan - Plan Referrals: NO,PCP [Primary Care Provider] -
[2017-01-15] MEDS: ARIPiprazole 10 MG TABLET PO SCH (14:09)
[2017-01-15] MEDS ORDERED: Aspirin 325 MG TABLET PO ONE (17:45)
--- NOTE | 2017-01-15 18:18 | Internal Medicine Consult Note ---
Date of Encounter: 01/15/17 Time of Encounter: 18:00 - Assessment and Plan (1) Chest pain Current Visit: Yes Status: Acute Assessment and plan: 1 patient to experience midsternal chest pain which was nonradiating and no aggravating factors relieved with rest pain resolved on its own. Presently pain free. Patient did have reproducible chest pain. I suspect this pain is related to musculoskeletal. First set cardiac troponins are negative EKG with no ST-T wave abnormalities. We will continue to cycle cardiac troponins. We will repeat EKG in a.m. Any changes in EKG or recurrent CP will perform cardiac stress test I reviewed this case with Dr Howard who agress with plan 2 will give ASA and continue ASA daily. Continue BB and add MATILDE. will obtain lipid profile in am 3 obtain baseline labs 4 obtain CXR Qualifiers: Chest pain type: unspecified Qualified Code(s): R07.9 - Chest pain, unspecified (2) HTN (hypertension) Current Visit: Yes Status: Acute Assessment and plan: has hx of of HTN, noted systolic 160-170 will add lisinopril - goal is to maintain systolic less than 140 Qualifiers: Hypertension type: essential hypertension Qualified Code(s): I10 - Essential (primary) hypertension (3) Acute psychosis Current Visit: Yes Status: Acute Assessment and plan: Has hx of bipolar schizophrenia- managed per psychiatry team Internal Medicine - CN: HPI - Data of Consult Patient: new to practice Consult date: 01/15/17 Requesting Physician: Luis Eduardo Duff MD - Consult Narrative Reason for consult: CP History of present illness: Mr. Prado is a 26 year old male with medical history of hypertension as well as schizophrenia,bipolar disorder. Information obtained from medical records and nursing staff due to patient's mental health condition this time. According to ER records the patient had been experiencing psychotic episode at home was hallucinating, belligerent to family members. He was evaluated by psychiatry and has been admitted to 1A psychiatric floor for continued management of psychoses. According to nursing staff the patient began to experience chest pain today during breakfast. Hospitalists have been consulted for evaluation patient's chest pain. Upon evaluation the patient has been pacing in the hallways at times he was anxious. When questioned about his chest pain the patient states that he experienced midsternal sharp chest pain which was nonradiating and questioned what aggravated the pain the patient laid back on the bed and refused to engage in conversation. Encouraged patient to speak to first practitioner after a few minutes patient did state there were no aggravating factors however his pain was relieved with rest. Patient had no associated symptoms except for nausea. During assessment is the patient has reproducible pain across chest and cries out in pain during assessment. Patient denies any recent injury or heavy lifting. He denies any smoking or recent drug use. He has no family history of cardiac disease. EKG was obtained which revealed sinus rhythm with no ST-T wave abnormalities. First set cardiac troponins have been negative. We will continue to cycle cardiac troponins and recheck EKG in a.m. The present time the patient appears to be hemodynamically stable and is not experiencing any chest pain at this time Past Med Surg Social Fam HX - Past Medical History Medical history: no medical history Psychiatric history: ADHD, bipolar, previous psychiatric hospitalization, other - Past Surgical History Surgical History: non-contributory - Social History Smoking Status: Never smoker Smokeless Tobacco Status: No Alcohol use: none Drug use: none - Cardiovascular Cardiovascular ROS IM: chest pain Internal Medicine - CN: Meds Benztropine [Cogentin] 1 mg PO BID 01/12/17 [History] Cholecalciferol (Vitamin D3) [Vitamin D3] 5,000 unit PO DAILY 01/12/17 [History] Divalproex (12 HR) [Depakote (12 HR)] 1,000 mg PO BID 01/12/17 [History] [place] Carbonate 600 mg PO BID 01/12/17 [History] Divalproex Sodium [Depakote] 1,250 mg PO HS 01/13/17 [History] Esomeprazole Magnesium [Nexium] 20 mg PO DAILY 01/13/17 [History] Melatonin 3 mg PO HS 01/13/17 [History] Metoprolol [Lopressor] 50 mg PO BID 01/13/17 [History] Mv-Mn/FA/Vit K/Lycop/Lut/Coq10 [Daily Multivitamin Capsule] 1 cap PO DAILY 01/13 [History] RisperiDONE [Risperdal] 4 mg PO BID 01/13/17 [History] Allergies No Known Allergies Allergy (Verified 01/12/17 19:59) Internal Medicine - CN: Exam - Constitutional Vitals: Temp Pulse Resp BP Pulse Ox 98.4 F 83 24 145/74 95 01/15/17 12:25 01/15/17 12:25 01/15/17 12:25 01/15/17 12:25 01/13/17 06:38 General appearance IM: Present: A&O X 2 - Head Head exam: Present: atraumatic, normocephalic - Eye Eye exam: Present: EOMI, PERRL Pupils: Present: PERRL - ENT ENT exam: Present: mucous membranes moist - Respiratory Respiratory exam: Present: CTAB - Cardiovascular Cardiovascular exam IM: Present: +S1, +S2 - Extremities Exam Extremities exam IM: Present: normal inspection - Neurological Exam Neurological exam: Present: alert, strengths equal and symetr throughout - Psychiatric Psychiatric exam: Present: flat affect - Skin Skin exam IM: Present: dry Internal Medicine - CN: Reslt - Labs CBC & Chem 7: 01/12/17 20:00 01/12/17 20:00 Labs: Cardiac Enzymes 01/15/17 Range/Units 13:42 Troponin I 0.01 (0-0.03) ng/mL - EKG Data EKG shows normal: sinus rhythm Consult Discharge Plan - Plan Referrals: NO,PCP [Primary Care Provider] -
[2017-01-15] MEDS: Melatonin 3 MG TABLET PO SCH (20:17)
[2017-01-15] MEDS: Divalproex (12 HR) 250 MG TABLET PO SCH (20:17)
[2017-01-15] MEDS: hydrOXYzine pamoate 25 MG CAPSULE PO PRN (20:19)
[2017-01-16] MEDS: *HR* LORazepam 1 MG TABLET PO PRN (00:10)
[2017-01-16 03:34] LABS: BUN/Creatinine Ratio 15 (6-26); Blood Urea Nitrogen 12 mg/dL (8-26); Calcium 9.6 mg/dL (8.6-10.8); Carbon Dioxide 24 mEq/L (19-29); Chloride 109 mEq/L (98-109); Chol/HDL Ratio 3.6 (0-4.9); Cholesterol 131 mg/dL (< 200); Glucose 88 mg/dL (70-99); HDL Cholesterol 36 mg/dL (40-59); LDL Cholesterol,Calculated 81 mg/dL (0-99); Osmolality,Calculated 289 (280-300); Sodium 140 mEq/L (136-145); Triglycerides 68 mg/dL (< 150); eGFR For African Americans > 60 (> 60); eGFR For Non-African Americans > 60 (> 60)
[2017-01-16] MEDS: Lithium Carbonate 300 MG CAPSULE PO SCH ×3 (08:28→20:01)
[2017-01-16] MEDS: Multivit/Ca/Min/Fe/FA 1 TAB TABLET PO SCH (08:28)
[2017-01-16] MEDS: Cholecalciferol (D-3) 1,000 UNIT TABLET PO SCH (08:28)
[2017-01-16] MEDS: risperiDONE 1 MG TABLET PO SCH ×2 (08:30→20:01)
[2017-01-16] MEDS: ARIPiprazole 10 MG TABLET PO SCH (08:30)
[2017-01-16] MEDS: Divalproex (12 HR) 500 MG TABLET PO SCH ×2 (08:31→14:15)
[2017-01-16] MEDS: Aspirin Enteric Coated 81 MG Tablet PO SCH (08:31)
[2017-01-16] MEDS: hydrOXYzine pamoate 25 MG CAPSULE PO PRN (08:41)
--- NOTE | 2017-01-16 13:50 | Psychiatry Progress Note ---
Date of Encounter: 01/16/17 Time of Encounter: 13:52 Subjective Interval history: Patient was seen for follow-up. Nursing staff reports patient has several episodes of agitation and bizarre behavior was yelling and screaming and he was medicated several time was Haldol and Ativan with good response. He continued to be paranoid and delusional and intrusive to staff and peers. Admitted with the patient and the psychologist social were explained to the patient discharge plans patient was able to understand discharge plans and he was irritable and easily agitated. I explained to him medication changes he seemed to be tolerating Abilify and level of Depakote and lithium will be checked in the morning. Discharge planning will continue. Review of Systems Psychiatric: Reports: auditory hallucinations, visual hallucinations, other ( Psychosis, paranoid delusions, cheondoism preoccupation) Objective: Exam Patient orientation: Yes Person, Yes Time, Yes Place Level of alertness: Alert Patient appearance: Disheveled, Bizarre, Obese Behavior: cooperative, aggressive, restless, suspicious, distractible, impulsive , talkative, other (Intrusive and disruptive) Psychomotor activity: Increased Eye contact: Intense Contact Mood description: Elevated, Labile, Irritable Affect description: labile, euphoric, incongruent with mood Speech pattern: Disorganized, Inappropriate to situation, Rambling, Excessive, Pressured Speech volume: Loud Thought process: Tangential, Flight of Ideas, Thought Blocking, Disorganized Thought content: No Suicidal ideation, No Homicidal ideation, Yes Overt delusions, Yes Paranoid delusion, Yes Orthodox delusion, Yes Obsessive thoughts Perceptual disturbances: Yes Auditory hallucinations, Yes Visual hallucinations Judgment: Limited Insight: Partial Results - Vital Signs Vital Signs: Temp Pulse Resp BP Pulse Ox 97.6 F 94 18 122/78 95 01/16/17 08:47 01/16/17 08:47 01/16/17 08:47 01/16/17 08:47 01/13/17 06:38 - Labs Labs: Laboratory Results - last 24 hr 01/15/17 01/15/17 01/16/17 13:42 20:25 03:12 Sodium 140 Potassium 4.0 Chloride 109 Carbon Dioxide 24 BUN 12 Creatinine 0.80 Est GFR ( Amer) > 60 Est GFR (Non-Af Amer) > 60 BUN/Creatinine Ratio 15 Glucose 88 POC Glucose Calculated Osmolality 289 Calcium 9.6 Troponin I 0.01 0.01 Triglycerides 68 Cholesterol 131 LDL Cholesterol, Calc 81 VLDL Cholesterol, Calc 14 HDL Cholesterol 36 L Cholesterol/HDL Ratio 3.6 01/16/17 01/16/17 03:12 08:25 Sodium Potassium Chloride Carbon Dioxide BUN Creatinine Est GFR ( Amer) Est GFR (Non-Af Amer) BUN/Creatinine Ratio Glucose POC Glucose 115 H Calculated Osmolality Calcium Troponin I 0.01 Triglycerides Cholesterol LDL Cholesterol, Calc VLDL Cholesterol, Calc HDL Cholesterol Cholesterol/HDL Ratio Assessment and Plan (1) Bipolar disorder with psychotic features Current visit: Yes Status: Acute Plan: Continue hospitalization, Close observation, Suicide Precautions per unit protocol, Encourage participation in unit milieu, Group Therapy, Monitor sleep, Monitor appetite Risks, benefits, side effects, alternatives discussed w/pt: Yes Patient agreeable to treatment: Yes Consult Discharge Plan - Plan Referrals: NO,PCP [Primary Care Provider] -
--- NOTE | 2017-01-16 16:25 | Internal Med Progress Note ---
Date of Encounter: 01/16/17 Time of Encounter: 16:17 - Assessment and plan (1) Acute psychosis Current Visit: Yes Status: Acute Assessment and plan: being treated in psych unit (2) Bipolar disorder with psychotic features Current Visit: Yes Status: Acute (3) HTN (hypertension) Current Visit: Yes Status: Chronic Assessment and plan: now controlled Qualifiers: Hypertension type: essential hypertension Qualified Code(s): I10 - Essential (primary) hypertension (4) Chest pain Current Visit: Yes Status: Acute Assessment and plan: atypical chest pain sharp ekg and serial troponin normal will sign off please call us back if needed Qualifiers: Chest pain type: unspecified Qualified Code(s): R07.9 - Chest pain, unspecified - Subjective Interval history: patient with history of schoziphrenia, admitted due to psychosis anf mental disturbance seen yesterday in consultation for sharp chest pain ekg and troponins negative today patient says chest pain has resolved - Constitutional Vitals: Temp Pulse Resp BP Pulse Ox 97.6 F 94 18 122/78 95 01/16/17 08:47 01/16/17 08:47 01/16/17 08:47 01/16/17 08:47 01/13/17 06:38 General appearance: Present: A&O X 2 - Eye Eye exam: Present: PERRL, conjuntiva pink, sclera anicteric Pupils: Present: PERRL - Neck Neck exam general surgery: Present: supple, trachea midline. Absent: lymphadenopathy - Respiratory Respiratory exam: Present: CTAB. Absent: accessory muscle use, rales, rhonchi, wheezes - Cardiovascular Cardiovascular exam: Present: RRR, +S1, +S2. Absent: diastolic murmur, gallop, rubs, systolic murmur - GI/Abdominal GI/Abdominal exam: Present: normal bowel sounds, soft, no peritoneal signs. Absent: distended, tenderness - Extremities Exam Extremities exam: Present: warm, radial pulses palpable and symetrical. Absent : calf tenderness, cyanotic, pedal edema - Neurological Exam Neurological exam: Present: CN II-XII intact, oriented X3, no focal deficits. Absent: pronater drift, facial droop, speech deficit Internal Medicine: Result - Labs CBC & Chem 7: 01/12/17 20:00 01/16/17 03:12 Labs: BMP 01/16/17 03:12 Sodium 140 Potassium 4.0 Chloride 109 Carbon Dioxide 24 BUN 12 Creatinine 0.80 Glucose 88 Calcium 9.6 Cardiac Enzymes 01/15/17 01/16/17 Range/Units 20:25 03:12 Troponin I 0.01 0.01 (0-0.03) ng/mL - Impressions Impressions Chest X-Ray 01/16/17 11:00 IMPRESSION: Overall stable appearing chest when compared to 2009, without acute pulmonary infiltrate. D/ / Brendon Bhardwaj MD / Brendon Bhardwaj MD Interpreting Provider: Brendon Bhardwaj MD - VTE Reasons for not Prescribing Prophylaxis: Treatment not Indicated - Low risk for VTE Consult Discharge Plan - Plan Referrals: NO,PCP [Primary Care Provider] -
[2017-01-16] MEDS: Melatonin 3 MG TABLET PO SCH (20:01)
[2017-01-16] MEDS: traZODone 50 MG TABLET PO PRN ×2 (20:01→21:26)
[2017-01-16] MEDS: Divalproex (12 HR) 250 MG TABLET PO SCH (20:01)
--- NOTE | 2017-01-16 20:34 | Electrocardiograph Report ---
[address] [address] Test Date: 2017-01-15 Pat Name: Gonzalez Prado Department: 101 Room: 1A Gender: M Intervention Teacher: MONIQUE : 1990 Requested By: Ryana Bazan Order Number: [id number] Reading MD: Asa Alvarez MD Measurements Intervals [place] Rate: 83 P: 61 SD: 143 QRS: 36 QRSD: 105 T: 57 QT: 355 QTc: 395 Interpretive Statements SINUS RHYTHM BASELINE ARTIFACT Electronically Signed On 01-16-2017 20:33:20 EDT by Asa Alvarez MD
[2017-01-17] MEDS: *HR* LORazepam 1 MG TABLET PO PRN ×2 (01:05→12:03)
[2017-01-17] MEDS: Divalproex (12 HR) 500 MG TABLET PO SCH ×2 (08:28→15:07)
[2017-01-17] MEDS: Cholecalciferol (D-3) 1,000 UNIT TABLET PO SCH (08:28)
[2017-01-17] MEDS: Multivit/Ca/Min/Fe/FA 1 TAB TABLET PO SCH (08:29)
[2017-01-17] MEDS: Lithium Carbonate 300 MG CAPSULE PO SCH ×3 (08:29→20:57)
[2017-01-17] MEDS: Aspirin Enteric Coated 81 MG Tablet PO SCH (08:29)
[2017-01-17] MEDS: risperiDONE 1 MG TABLET PO SCH ×2 (08:30→20:58)
[2017-01-17] MEDS: ARIPiprazole 10 MG TABLET PO SCH (08:30)
--- NOTE | 2017-01-17 15:01 | Psychiatry Progress Note ---
Date of Encounter: 01/17/17 Time of Encounter: 14:00 Subjective Interval history: Gonzalez seen today and notes reviewed. Patient reports he feels better today. He is not sure why he still here. Patient is very focused on finding an apartment but he seems unreasonable in his thought process. "I just with in homeless shelters until I figure things out." Patient thinks that his mom was supposed to be visiting today but he is not sure. He does remember getting agitated yesterday with staff and he has required a lot of when necessary meds in addition to a very high dosage of scheduled medication for mood stabilization. His Depakote and lithium levels were drawn in the afternoon instead of this morning. We will redraw these for the morning tomorrow. Continue to encourage patient to take meds as prescribed and attempt to engage him in the therapeutic milieu. He denies auditory or visual hallucinations but does appear suspicious and guarded with this provider. Review of Systems Psychiatric: Reports: auditory hallucinations, visual hallucinations, other ( Psychosis, paranoid delusions, sikh preoccupation) Objective: Exam Patient orientation: Yes Person, Yes Time, Yes Place Level of alertness: Alert Patient appearance: Disheveled, Bizarre Behavior: restless, guarded, suspicious, distractible, impulsive Psychomotor activity: Increased Eye contact: Intense Contact Mood description: Labile, Irritable Affect description: flat, dysphoric, incongruent with mood Speech pattern: Slowed Speech volume: Loud Thought process: Thought Blocking, [place], Slowed Thinking Thought content: No Suicidal ideation, No Homicidal ideation, Yes Overt delusions, Yes Paranoid delusion, Yes Taoism delusion Perceptual disturbances: Yes Reacting to internal stimuli, No Auditory hallucinations, No Visual hallucinations Judgment: Limited Insight: Minimal Results - Vital Signs Vital Signs: Temp Pulse Resp BP Pulse Ox 97.8 F 98 18 130/83 95 01/17/17 09:00 01/17/17 09:00 01/17/17 09:00 01/17/17 09:00 01/13/17 06:38 - Drug Levels and Toxicology Drug Levels and Toxicology: Drug Levels and Toxicity 01/17/17 13:47 [place] 0.8 - Labs Labs: Laboratory Results - last 24 hr 01/16/17 01/17/17 17:38 13:47 POC Glucose 97 H [place] 0.8 - Impressions ITS Impressions Chest X-Ray 01/16/17 11:00 IMPRESSION: Overall stable appearing chest when compared to 2009, without acute pulmonary infiltrate. D/ / Brendon Bhardwaj MD / Brendon Bhardwaj MD Interpreting Provider: Brendon Bhardwaj MD Assessment and Plan (1) Bipolar disorder with psychotic features Current visit: Yes Status: Acute Plan: Continue hospitalization, Close observation, Suicide Precautions per unit protocol, Encourage participation in unit milieu, Group Therapy, Monitor sleep, Monitor appetite Additional Plan: Continue current medications. PRN meds when absolutely necessary. Redraw valproate and lithium level in a.m. for more accurate measurements. Encourage participation in therapeutic milieu. We will continue to work with family on a safe discharge plan. Risks, benefits, side effects, alternatives discussed w/pt: Yes Patient agreeable to treatment: Yes (2) Chest pain Current visit: Yes Status: Acute Additional Plan: Patient was evaluated by our internal medicine consult service. Patient can be followed up as an outpatient and they have signed off. We will continue to monitor vitals. Patient is aware he should let staff know if chest pain returns. Qualifiers: Chest pain type: unspecified Qualified Code(s): R07.9 - Chest pain, unspecified Consult Discharge Plan - Plan Referrals: NO,PCP [Primary Care Provider] -
[2017-01-17] MEDS: Ibuprofen 800 MG TABLET PO PRN (15:48)
[2017-01-17] MEDS: Divalproex (12 HR) 250 MG TABLET PO SCH (20:56)
[2017-01-17] MEDS: traZODone 50 MG TABLET PO PRN (20:57)
[2017-01-17] MEDS: Melatonin 3 MG TABLET PO SCH (20:57)
[2017-01-18] MEDS: traZODone 50 MG TABLET PO PRN ×2 (01:30→21:14)
[2017-01-18] MEDS: ARIPiprazole 10 MG TABLET PO SCH (09:12)
[2017-01-18] MEDS: Aspirin Enteric Coated 81 MG Tablet PO SCH (09:12)
[2017-01-18] MEDS: Divalproex (12 HR) 500 MG TABLET PO SCH ×2 (09:13→14:54)
[2017-01-18] MEDS: Lithium Carbonate 300 MG CAPSULE PO SCH ×3 (09:14→21:14)
[2017-01-18] MEDS: Multivit/Ca/Min/Fe/FA 1 TAB TABLET PO SCH (09:16)
[2017-01-18] MEDS: risperiDONE 1 MG TABLET PO SCH ×2 (09:16→21:13)
[2017-01-18] MEDS: Cholecalciferol (D-3) 1,000 UNIT TABLET PO SCH (09:17)
[2017-01-18] MEDS: Ibuprofen 800 MG TABLET PO PRN (12:12)
--- NOTE | 2017-01-18 12:24 | Psychiatry Progress Note ---
Date of Encounter: 01/18/17 Time of Encounter: 10:20 Subjective Interval history: Gonzalez is seen today for follow-up. He reports he is feeling better today and his affect is slightly more full range. He has been frustrated because he has been unable to get ahold of family but apparently did talk to his aunt this morning. He does want to be discharged but he required prn meds for agitation yesterday afternoon. We discussed that patient would need to be able to calm himself down and not require these meds prior to discharge. He does report random issues with pain. He told the staff member that both his foot and his penis hurt at various times throughout the day today. He does seem to be a bit intrusive with staff and still somewhat intrusive with peers in the milieu. He does not appear to be responding to internal stimuli today. Patient does get irritable when boundaries and limits are set with him by staff. Review of Systems Constitutional: Denies: fever, chills, weakness, weight change Eyes: Denies: eye pain, vision change Ears, Nose, Throat: Denies: ear pain, throat pain, dental pain, hearing loss, congestion Cardiovascular: Denies: chest pain, palpitations, dyspnea on exertion Respiratory: Denies: cough, dyspnea, wheezes Musculoskeletal: Reports: other (Foot pain) Psychiatric: Reports: irritability, mood swings, other (Psychosis, paranoid delusions, catholic preoccupation). Denies: auditory hallucinations, visual hallucinations Objective: Exam Patient orientation: Yes Person, Yes Time, Yes Place Level of alertness: Alert Patient appearance: Unkempt Behavior: restless, guarded, impulsive, talkative, other (Intrusive at times.) Psychomotor activity: Increased Eye contact: Intense Contact Mood description: Labile, Irritable Affect description: blunted (Affect still flat but more full range than yesterday.) Speech pattern: Clear, Slowed Speech volume: Normal Thought process: [place] Thought content: No Suicidal ideation, No Homicidal ideation, No Overt delusions , No Paranoid delusion, Yes Orthodox delusion Perceptual disturbances: No Reacting to internal stimuli, No Auditory hallucinations, No Visual hallucinations Judgment: Limited Insight: Minimal Results - Vital Signs Vital Signs: Temp Pulse Resp BP Pulse Ox 97.7 F 101 16 138/94 95 01/18/17 08:35 01/18/17 08:35 01/18/17 08:35 01/18/17 08:35 01/13/17 06:38 - Drug Levels and Toxicology Drug Levels and Toxicology: Drug Levels and Toxicity 01/17/17 01/18/17 13:47 08:48 [place] 0.8 0.7 - Labs Labs: Laboratory Results - last 24 hr 01/17/17 01/18/17 01/18/17 13:47 08:48 08:48 Valproic Acid 60.94 [place] 0.8 0.7 - Impressions ITS Impressions Chest X-Ray 01/16/17 11:00 IMPRESSION: Overall stable appearing chest when compared to 2009, without acute pulmonary infiltrate. D/ / Brendon Bhardwaj MD / Brendon Bhardwaj MD Interpreting Provider: Brendon Bhardwaj MD Assessment and Plan (1) Bipolar disorder with psychotic features Current visit: Yes Status: Acute Plan: Continue hospitalization, Close observation, Suicide Precautions per unit protocol, Encourage participation in unit milieu, Group Therapy, Monitor sleep, Monitor appetite Additional Plan: Labs redrawn and appropriate. [place] level was 0.7 and valproic acid level was 60.94. Patient denies side effects. Continue current meds and encourage patient to use positive coping strategies to deal with agitation. Risks, benefits, side effects, alternatives discussed w/pt: Yes Patient agreeable to treatment: Yes Consult Discharge Plan - Plan Referrals: NO,PCP [Primary Care Provider] -
[2017-01-18] MEDS: Acetaminophen 325 MG TABLET PO PRN (19:20)
--- NOTE | 2017-01-18 20:51 | Electrocardiograph Report ---
[address] [address] Test Date: 2017-01-16 Pat Name: Gonzalez Prado Department: 101 Room: 1A Gender: M Shuttle Hand: : 1990 Requested By: Rayna Bazan Order Number: [id number] Reading MD: Carlos Chiang MD Measurements Intervals [place] Rate: 76 P: 44 SC: 135 QRS: 62 QRSD: 104 T: 33 QT: 373 QTc: 403 Interpretive Statements SINUS RHYTHM NONSPECIFIC T-WAVE ABNORMALITY Electronically Signed On 01-18-2017 20:49:49 EDT by Carlos Chiang MD
[2017-01-18] MEDS: Divalproex (12 HR) 250 MG TABLET PO SCH (21:15)
[2017-01-18] MEDS: Melatonin 3 MG TABLET PO SCH (21:15)
[2017-01-18] MEDS: *HR* LORazepam 1 MG TABLET PO PRN (21:50)
[2017-01-19] MEDS: ARIPiprazole 10 MG TABLET PO SCH (08:34)
[2017-01-19] MEDS: Aspirin Enteric Coated 81 MG Tablet PO SCH (08:35)
[2017-01-19] MEDS: risperiDONE 1 MG TABLET PO SCH ×2 (08:35→21:02)
[2017-01-19] MEDS: Cholecalciferol (D-3) 1,000 UNIT TABLET PO SCH (08:35)
[2017-01-19] MEDS: Lithium Carbonate 300 MG CAPSULE PO SCH ×3 (08:36→21:03)
[2017-01-19] MEDS: Multivit/Ca/Min/Fe/FA 1 TAB TABLET PO SCH (08:36)
[2017-01-19] MEDS: Divalproex (12 HR) 500 MG TABLET PO SCH ×2 (08:37→14:46)
[2017-01-19] MEDS: Mag Hydrox/Al Hydrox/Simeth 30 ML UDC PO PRN (12:00)
--- NOTE | 2017-01-19 13:03 | Psychiatry Progress Note ---
Date of Encounter: 01/19/17 Time of Encounter: 12:59 Subjective Interval history: Patient is seen for follow-up. Review notes by nursing staff and Dr. Lazaro indicated that patient has been shown some improvements continued to be irritable and intrusive and required when necessary medication recently. Per staff family feels he is close to his baseline. Court hearing is scheduled for tomorrow. Patient continued to make intense eye contact and ask several questions that are not related. Continue to show some suspiciousness. Discharge plans are ongoing to provide adequate support and service. Review of Systems Psychiatric: Reports: irritability, mood swings, other (Psychosis, paranoid delusions, mu-ism preoccupation). Denies: auditory hallucinations, visual hallucinations Objective: Exam Patient orientation: Yes Person, Yes Time, Yes Place Level of alertness: Alert Patient appearance: Unkempt Behavior: restless, guarded, impulsive, talkative, other (Intrusive at times.) Psychomotor activity: Increased Eye contact: Intense Contact Mood description: Labile, Irritable Affect description: blunted (Affect still flat but more full range than yesterday.) Speech pattern: Clear, Slowed Speech volume: Normal Thought process: [place] Thought content: No Suicidal ideation, No Homicidal ideation, No Overt delusions , No Paranoid delusion, Yes Christian delusion Perceptual disturbances: No Reacting to internal stimuli, No Auditory hallucinations, No Visual hallucinations Judgment: Limited Insight: Minimal Results - Vital Signs Vital Signs: Temp Pulse Resp BP Pulse Ox 97.9 F 88 16 125/83 95 01/19/17 08:48 01/19/17 08:48 01/19/17 08:48 01/19/17 08:48 01/13/17 06:38 - Impressions ITS Impressions Chest X-Ray 01/16/17 11:00 IMPRESSION: Overall stable appearing chest when compared to 2009, without acute pulmonary infiltrate. D/ / Brendon Bhardwaj MD / Brendon Bhardwaj MD Interpreting Provider: Brendon Bhardwaj MD Assessment and Plan (1) Bipolar disorder with psychotic features Current visit: Yes Status: Acute Plan: Continue hospitalization, Close observation, Suicide Precautions per unit protocol, Encourage participation in unit milieu, Group Therapy, Monitor sleep, Monitor appetite Risks, benefits, side effects, alternatives discussed w/pt: Yes Patient agreeable to treatment: Yes Consult Discharge Plan - Plan Referrals: [facility] [Other] (To start services , you may walk into the clinic any Thursday from 8:30 AM through 4:00 PM, any Thursday from 10:00 AM through 2:00 PM, any Thursday from 8:30 AM through 12:30 PM, or any from 1:00 PM through 5:00 PM. When you walk in your case will be opened and you will be referred for ongoing services to include: counseling, case management through [facility], and medication management services. Please bring your insurance card with you when you walk into start services.)
[2017-01-19] MEDS: *HR* LORazepam 1 MG TABLET PO PRN (17:26)
[2017-01-19] MEDS: Ibuprofen 800 MG TABLET PO PRN (17:28)
[2017-01-19] MEDS: Divalproex (12 HR) 250 MG TABLET PO SCH (21:03)
[2017-01-19] MEDS: Melatonin 3 MG TABLET PO SCH (21:03)
[2017-01-19] MEDS: traZODone 50 MG TABLET PO PRN (21:08)
[2017-01-20] MEDS: traZODone 50 MG TABLET PO PRN ×2 (01:55→20:56)
[2017-01-20] MEDS: Ibuprofen 800 MG TABLET PO PRN (04:54)
[2017-01-20] MEDS: risperiDONE 1 MG TABLET PO SCH ×2 (09:27→20:56)
[2017-01-20] MEDS: Lithium Carbonate 300 MG CAPSULE PO SCH ×3 (09:28→20:57)
[2017-01-20] MEDS: Multivit/Ca/Min/Fe/FA 1 TAB TABLET PO SCH (09:29)
[2017-01-20] MEDS: ARIPiprazole 10 MG TABLET PO SCH (09:29)
[2017-01-20] MEDS: Divalproex (12 HR) 500 MG TABLET PO SCH ×2 (09:29→15:35)
[2017-01-20] MEDS: Aspirin Enteric Coated 81 MG Tablet PO SCH (09:29)
[2017-01-20] MEDS: Cholecalciferol (D-3) 1,000 UNIT TABLET PO SCH (09:29)
--- NOTE | 2017-01-20 14:25 | Psychiatry Progress Note ---
Date of Encounter: 01/20/17 Time of Encounter: 14:00 Subjective Interval history: Patient is here for follow-up. Staff reports she had an episode of irritability with another patient last evening and required when necessary medication. Patient is making progress in his impulse control and the frequency of these episodes is decreasing. He attended problem cause hearing and probable cause was found. Discharge planning is managed by the socially responsible investment adviser and the patient is informed of those plans. He is tolerating the medication without any side effects or problems. Continue to be intrusive and at times agitated. Review of Systems Psychiatric: Reports: irritability, mood swings, other (Psychosis, paranoid delusions, sabianism preoccupation). Denies: auditory hallucinations, visual hallucinations Objective: Exam Patient orientation: Yes Person, Yes Time, Yes Place Level of alertness: Alert Patient appearance: Unkempt Behavior: restless, guarded, impulsive, talkative, other (Intrusive at times.) Psychomotor activity: Increased Eye contact: Intense Contact Mood description: Labile, Irritable Affect description: blunted (Affect still flat but more full range than yesterday.) Speech pattern: Clear, Slowed Speech volume: Normal Thought process: [place] Thought content: No Suicidal ideation, No Homicidal ideation, No Overt delusions , No Paranoid delusion, Yes Worship delusion Perceptual disturbances: No Reacting to internal stimuli, No Auditory hallucinations, No Visual hallucinations Judgment: Limited Insight: Minimal Results - Vital Signs Vital Signs: Temp Pulse Resp BP Pulse Ox 98.2 F 101 18 140/83 95 01/20/17 09:00 01/20/17 09:00 01/20/17 09:00 01/20/17 09:00 01/13/17 06:38 - Impressions ITS Impressions Chest X-Ray 01/16/17 11:00 IMPRESSION: Overall stable appearing chest when compared to 2009, without acute pulmonary infiltrate. D/ / Brendon Bhardwaj MD / Brendon Bhardwaj MD Interpreting Provider: Brendon Bhardwaj MD Assessment and Plan (1) Bipolar disorder with psychotic features Current visit: Yes Status: Acute Plan: Continue hospitalization, Close observation, Suicide Precautions per unit protocol, Encourage participation in unit milieu, Group Therapy, Monitor sleep, Monitor appetite Risks, benefits, side effects, alternatives discussed w/pt: Yes Patient agreeable to treatment: Yes Consult Discharge Plan - Plan Referrals: [facility] [Other] (To start services , you may walk into the clinic any Thursday from 8:30 AM through 4:00 PM, any Thursday from 10:00 AM through 2:00 PM, any Thursday from 8:30 AM through 12:30 PM, or any from 1:00 PM through 5:00 PM. When you walk in your case will be opened and you will be referred for ongoing services to include: counseling, case management through [facility], and medication management services. Please bring your insurance card with you when you walk into start services.)
[2017-01-20] MEDS: Melatonin 3 MG TABLET PO SCH (20:56)
[2017-01-20] MEDS: Divalproex (12 HR) 250 MG TABLET PO SCH (20:56)
[2017-01-21] MEDS: Acetaminophen 325 MG TABLET PO PRN ×2 (00:22→18:02)
[2017-01-21] MEDS: Divalproex (12 HR) 500 MG TABLET PO SCH ×2 (08:32→17:03)
[2017-01-21] MEDS: ARIPiprazole 10 MG TABLET PO SCH (08:32)
[2017-01-21] MEDS: Lithium Carbonate 300 MG CAPSULE PO SCH ×3 (08:33→20:01)
[2017-01-21] MEDS: Aspirin Enteric Coated 81 MG Tablet PO SCH (08:33)
[2017-01-21] MEDS: Cholecalciferol (D-3) 1,000 UNIT TABLET PO SCH (08:33)
[2017-01-21] MEDS: Multivit/Ca/Min/Fe/FA 1 TAB TABLET PO SCH (08:33)
[2017-01-21] MEDS: risperiDONE 1 MG TABLET PO SCH ×2 (08:33→19:59)
--- NOTE | 2017-01-21 14:39 | Psychiatry Progress Note ---
Date of Encounter: 01/21/17 Time of Encounter: 14:10 Subjective Interval history: Patient is here for follow-up. Staff report he is compliant with medication less intrusive and not agitated or irritable. He continued to show rehabilitative speech and questions related to vitamin D Fish oil and questions regarding his discharge from the hospital. Staff report he had occasional insomnia that helps that was helpful was trazodone. There is no reports of agitation. 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 Review of Systems Psychiatric: Reports: irritability, mood swings, other (Psychosis, paranoid delusions, taoist preoccupation). Denies: auditory hallucinations, visual hallucinations Objective: Exam Patient orientation: Yes Person, Yes Time, Yes Place Level of alertness: Alert Patient appearance: Appropriate, Well Groomed Behavior: cooperative, guarded, talkative, other (Intrusive at times.) Psychomotor activity: Normal Eye contact: Fleeting Contact Mood description: Anxious, Labile, Irritable Affect description: blunted (Affect still flat but more full range than yesterday.) Speech pattern: Normal rate, Normal rhythm, Normal tone, Clear, Slowed, Repetitive Speech volume: Normal Thought process: Disorganized, Perseveration, [place] Thought content: No Suicidal ideation, No Homicidal ideation, No Overt delusions , No Paranoid delusion, Yes Bahai delusion Perceptual disturbances: No Reacting to internal stimuli, No Auditory hallucinations, No Visual hallucinations Judgment: Limited Insight: Minimal Results - Vital Signs Vital Signs: Temp Pulse Resp BP Pulse Ox 98.4 F 96 16 134/87 95 01/21/17 08:29 01/21/17 08:29 01/21/17 08:29 01/21/17 08:29 01/13/17 06:38 - Labs Labs: Laboratory Results - last 24 hr 01/21/17 10:03 POC Glucose 124 H - Impressions ITS Impressions Chest X-Ray 01/16/17 11:00 IMPRESSION: Overall stable appearing chest when compared to 2009, without acute pulmonary infiltrate. D/ / Brendon Bhardwaj MD / Brendon Bhardwaj MD Interpreting Provider: Brendon Bhardwaj MD Assessment and Plan (1) Bipolar disorder with psychotic features Current visit: Yes Status: Acute Plan: Continue hospitalization, Close observation, Suicide Precautions per unit protocol, Encourage participation in unit milieu, Group Therapy, Monitor sleep, Monitor appetite Additional Plan: Continue medication and continue to monitor patient's response and behaviors when necessary is encouraged as needed. Risks, benefits, side effects, alternatives discussed w/pt: Yes Patient agreeable to treatment: Yes Consult Discharge Plan - Plan Referrals: [facility] [Other] (To start services , you may walk into the clinic any Thursday from 8:30 AM through 4:00 PM, any Thursday from 10:00 AM through 2:00 PM, any Thursday from 8:30 AM through 12:30 PM, or any from 1:00 PM through 5:00 PM. When you walk in your case will be opened and you will be referred for ongoing services to include: counseling, case management through [facility], and medication management services. Please bring your insurance card with you when you walk into start services.)
[2017-01-21] MEDS: Divalproex (12 HR) 250 MG TABLET PO SCH (19:59)
[2017-01-21] MEDS: *HR* LORazepam 1 MG TABLET PO PRN (20:00)
[2017-01-21] MEDS: Melatonin 3 MG TABLET PO SCH (20:00)
[2017-01-21] MEDS: traZODone 50 MG TABLET PO PRN (20:01)
[2017-01-22 00:27] LABS: Valproate Free 9 ug/mL (7-23); Valproate Total 76 ug/mL (50-125)
[2017-01-22] MEDS: Mag Hydrox/Al Hydrox/Simeth 30 ML UDC PO PRN (02:24)
[2017-01-22] MEDS: ARIPiprazole 10 MG TABLET PO SCH (08:39)
[2017-01-22] MEDS: Aspirin Enteric Coated 81 MG Tablet PO SCH (08:39)
[2017-01-22] MEDS: risperiDONE 1 MG TABLET PO SCH ×2 (08:40→20:10)
[2017-01-22] MEDS: Divalproex (12 HR) 500 MG TABLET PO SCH ×2 (08:40→15:09)
[2017-01-22] MEDS: Lithium Carbonate 300 MG CAPSULE PO SCH ×3 (08:40→20:11)
[2017-01-22] MEDS: Cholecalciferol (D-3) 1,000 UNIT TABLET PO SCH (08:41)
[2017-01-22] MEDS: Multivit/Ca/Min/Fe/FA 1 TAB TABLET PO SCH (08:41)
[2017-01-22 11:32] LABS: Valproate % Free 12 % (5-18)
--- NOTE | 2017-01-22 15:09 | Psychiatry Progress Note ---
Date of Encounter: 01/21/17 Time of Encounter: 14:30 Subjective Interval history: Patient seen for follow-up. Staff report he is cooperative, compliant with medication, less intrusive and not agitated. He continues however to pace the hallways and at times he sings loudly. He is tolerating his medication. He is less delusional. His discharge plans are finalized by the perinatal social worker for possible discharge tomorrow. Review of Systems Psychiatric: Reports: irritability, mood swings, other (Psychosis, paranoid delusions, rastafari preoccupation). Denies: auditory hallucinations, visual hallucinations Objective: Exam Patient orientation: Yes Person, Yes Time, Yes Place Level of alertness: Alert Patient appearance: Appropriate, Well Groomed, Bizarre Behavior: cooperative, guarded, talkative, other (Intrusive at times.) Psychomotor activity: Normal Eye contact: Intense Contact Mood description: Anxious, Euphoric, Labile Affect description: labile, euphoric Speech pattern: Normal rate, Normal rhythm, Normal tone, Clear, Slowed, Disorganized, Repetitive Speech volume: Normal, Loud Thought process: Disorganized, Perseveration, [place] Thought content: No Suicidal ideation, No Homicidal ideation, No Overt delusions , No Paranoid delusion, Yes Latter-Day delusion Perceptual disturbances: No Reacting to internal stimuli, No Auditory hallucinations, No Visual hallucinations Judgment: Limited Insight: Minimal Results - Vital Signs Vital Signs: Temp Pulse Resp BP Pulse Ox 97.5 F L 98 16 125/85 95 01/22/17 09:00 01/22/17 09:00 01/22/17 09:00 01/22/17 09:00 01/13/17 06:38 - Drug Levels and Toxicology Drug Levels and Toxicology: Drug Levels and Toxicity 01/17/17 13:47 Free Valproic Acid 9 Total Valproic Acid 76 - Labs Labs: Laboratory Results - last 24 hr 01/17/17 13:47 Free Valproic Acid 9 Total Valproic Acid 76 % Free Valproic Acid 12 - Impressions ITS Impressions Chest X-Ray 01/16/17 11:00 IMPRESSION: Overall stable appearing chest when compared to 2009, without acute pulmonary infiltrate. D/ / Brendon Bhardwaj MD / Brendon Bhardwaj MD Interpreting Provider: Brendon Bhardwaj MD Assessment and Plan (1) Bipolar disorder with psychotic features Current visit: Yes Status: Acute Plan: Continue hospitalization, Close observation, Suicide Precautions per unit protocol, Encourage participation in unit milieu, Group Therapy, Monitor sleep, Monitor appetite Risks, benefits, side effects, alternatives discussed w/pt: Yes Patient agreeable to treatment: Yes Consult Discharge Plan - Plan Referrals: [facility] [Other] (To start services , you may walk into the clinic any Thursday from 8:30 AM through 4:00 PM, any Thursday from 10:00 AM through 2:00 PM, any Thursday from 8:30 AM through 12:30 PM, or any from 1:00 PM through 5:00 PM. When you walk in your case will be opened and you will be referred for ongoing services to include: counseling, case management through [facility], and medication management services. Please bring your insurance card with you when you walk into start services.)
[2017-01-22] MEDS: Divalproex (12 HR) 250 MG TABLET PO SCH (20:10)
[2017-01-22] MEDS: Melatonin 3 MG TABLET PO SCH (20:11)
[2017-01-22] MEDS: traZODone 50 MG TABLET PO PRN (20:15)
[2017-01-23] MEDS: traZODone 50 MG TABLET PO PRN (01:14)
[2017-01-23] MEDS: Acetaminophen 325 MG TABLET PO PRN ×2 (01:14→08:37)
[2017-01-23] MEDS: Aspirin Enteric Coated 81 MG Tablet PO SCH (08:25)
[2017-01-23] MEDS: Divalproex (12 HR) 500 MG TABLET PO SCH (08:25)
[2017-01-23] MEDS: ARIPiprazole 10 MG TABLET PO SCH (08:27)
[2017-01-23] MEDS: Lithium Carbonate 300 MG CAPSULE PO SCH (08:27)
[2017-01-23] MEDS: risperiDONE 1 MG TABLET PO SCH (08:28)
[2017-01-23] MEDS: Cholecalciferol (D-3) 1,000 UNIT TABLET PO SCH (08:28)
[2017-01-23] MEDS: Multivit/Ca/Min/Fe/FA 1 TAB TABLET PO SCH (08:28)
[2017-01-23 09:27] VITALS: BP 113/87
--- NOTE | 2017-01-23 11:23 | Discharge Summary ---
Date of Encounter: 01/23/17 Time of Encounter: 11:09 Diagnosis - Discharge Diagnosis (1) Bipolar disorder with psychotic features Status: Acute Medications - Discharge Medications Prescriptions: Aripiprazole [Abilify] 20 mg PO DAILY #60 tablet Benztropine [Cogentin] 1 mg PO BID #60 tablet Cholecalciferol (Vitamin D3) [Vitamin D3] 5,000 unit PO DAILY #30 tab.chew Divalproex (12 HR) [Depakote (12 HR)] 1,000 mg PO BID #120 tablet. Divalproex Sodium [Depakote] 1,250 mg PO HS #150 tablet. Esomeprazole Magnesium [Nexium] 20 mg PO DAILY #30 capsule. Lisinopril [Zestril] 5 mg PO DAILY #30 tablet [employer] Carbonate 600 mg PO TID #90 capsule Melatonin 3 mg PO HS #30 tablet Metoprolol [Lopressor] 50 mg PO BID #60 tablet Mv-Mn/FA/Vit K/Lycop/Lut/Coq10 [Daily Multivitamin Capsule] 1 cap PO DAILY #30 capsule RisperiDONE [Risperdal] 4 mg PO BID #60 tablet TraZODone 50 mg PO HS PRN #30 tablet PRN Reason: insomnia/may repeat in 1 hour Aripiprazole [Abilify] 20 mg PO DAILY #60 tablet 01/23/17 [Rx] Benztropine [Cogentin] 1 mg PO BID #60 tablet 01/23/17 [Rx] Cholecalciferol (Vitamin D3) [Vitamin D3] 5,000 unit PO DAILY #30 tab.chew 01/23 [Rx] Divalproex (12 HR) [Depakote (12 HR)] 1,000 mg PO BID #120 tablet. 01/23/17 [ Rx] Divalproex Sodium [Depakote] 1,250 mg PO HS #150 tablet. 01/23/17 [Rx] Esomeprazole Magnesium [Nexium] 20 mg PO DAILY #30 capsule. 01/23/17 [Rx] Lisinopril [Zestril] 5 mg PO DAILY #30 tablet 01/23/17 [Rx] [employer] Carbonate 600 mg PO TID #90 capsule 01/23/17 [Rx] Melatonin 3 mg PO HS #30 tablet 01/23/17 [Rx] Metoprolol [Lopressor] 50 mg PO BID #60 tablet 01/23/17 [Rx] Mv-Mn/FA/Vit K/Lycop/Lut/Coq10 [Daily Multivitamin Capsule] 1 cap PO DAILY #30 capsule 01/23/17 [Rx] RisperiDONE [Risperdal] 4 mg PO BID #60 tablet 01/23/17 [Rx] TraZODone 50 mg PO HS PRN #30 tablet 01/23/17 [Rx] Allergies No Known Allergies Allergy (Verified 01/12/17 19:59) Results Procedures and tests throughout hospitalization: Completed Lab Orders Category Date Time Status Chem 7 [Basic Metabolic Panel] AM 0400 Lab 01/16/17 03:12 Completed Lipid Panel AM 0400 Lab 01/16/17 03:12 Completed [employer] Routine Lab 01/17/17 13:47 Completed [employer] Routine Lab 01/18/17 08:48 Completed Troponin I Routine Lab 01/15/17 20:25 Completed Troponin I Routine Lab 01/16/17 03:12 Completed Troponin I Stat Lab 01/15/17 13:42 Completed Valproate Routine Lab 01/18/17 08:48 Completed Valproate Total & Free Routine Lab 01/17/17 13:47 Completed Completed Imaging Orders Category Date Time Status CXR, portable [XR chest 1V portable] [XR] Routine Exams 01/16/17 11:00 Completed Provider Date of admission: 01/13/17 10:56 Primary care physician: PCP NO Consults: 01/15/17 12:33 Consult to Hospitalist [CONS] Stat Consulting Provider: Rayna Bazan Reason for Consult: chest pain Time Notified: 12:33 Call Completed: Yes Discharging clinician: Luis Eduardo Duff Assessment and Plan - Patient/Caregiver Discharge Instructions Activity: resume usual activities as tolerated Diet: regular diet - Follow up Plan [facility] with: [facility] [Other] (To start services , you may walk into the clinic any Thursday from 8:30 AM through 4:00 PM, any Thursday from 10:00 AM through 2:00 PM, any Thursday from 8:30 AM through 12:30 PM, or any from 1:00 PM through 5:00 PM. When you walk in your case will be opened and you will be referred for ongoing services to include: counseling, case management through [facility], and medication management services. Please bring your insurance card with you when you walk into start services.) Functional capacity at discharge: independent ambulation Overall status at discharge: Stable Disposition: Home, Self-Care Hospital Course Hospital course: Mr. Prado is a 26 year old male admitted from the emergency room for exacerbation of schizoaffective disorder bipolar type with hallucinations and delusions and noncompliance with medication. For details of admission please see H&P On the units patient displayed significant symptoms of psychosis do and paranoia. He was internally stimulated, he was yelling and screaming, he was easily agitated, he was religiously preoccupied and delusional and he was paranoid. Patient medications were adjusted by increasing lithium and adding Abilify. Depakote and lithium level were checked and were therapeutic. Patient responded to treatment he reported better sleep he was less agitated, less manic and less intrusive. Probable cause hearing was done and granted. Discharge planning was challenging and social media marketing specialist did a wonderful job to have adequate services to support patient in the community. Prior to discharge patient was medically stable cooperative and compliant with his medication and not presenting any symptom of overt psychosis. he Participated in groups and his discharge plans. - Time Spent with Patient Total time spent providing and/or coordinating discharge services: Greater than 30 minutes Quality - Multiple Antipsychotics Patient discharged on 2 or more antipsychotic medications: Yes - Justification Documentation of: History 3 failed trials of monotherapy (Patient would not be stabilized on 1 antipsychotic) Procedures - Procedures Procedures: Medication Management, Crisis Stabilization, Supportive Therapy, Group Therapy, Psychoeducational Therapy Mental Status Exam - Mental Status Exam Patient orientation: Yes Person, Yes Time, Yes Place Level of alertness: Alert Patient appearance: Appropriate, Well Groomed, Bizarre Behavior: cooperative, guarded, talkative, other (Intrusive at times.) Psychomotor activity: Normal Eye contact: Prolonged Contact Mood description: Euthymic/stable, Anxious, Labile Affect description: euthymic, labile Speech pattern: Normal rate, Normal rhythm, Normal tone, Clear, Disorganized, Repetitive Speech Volume: Normal Thought process: Disorganized, Perseveration, [place] Thought Content: No Suicidal ideation, No Homicidal ideation, No Overt delusions , No Paranoid delusion, Yes Hinduism delusion Perceptual Disturbances: No Reacting to internal stimuli, No Auditory hallucinations, No Visual hallucinations Judgment: Limited Insight: Minimal
== END 2017-01-23 12:48 | disposition home or self-care (01) | DRG 750 ==
LOC: EMEROO 19:29 → 1ANU 01-13 10:56
PROVIDERS: ADMIT Psychiatry & Neurology Psychiatry; ATTEND Psychiatry & Neurology Psychiatry

== ENCOUNTER 2017-04-30 14:23 | Inpatient (IN) ==
[2017-04-30 14:52] LABS: Basophils % 0.3 %; Eosinophils % 0.3 %; Hematocrit 46.1 % (37.5-50.1); Hemoglobin 15.5 g/dL (12.9-16.9); Immature Granulocytes % 0.5 % (0-4); Lymphocytes # 1.8 K/mcL (0.6-4.6); Lymphocytes % 23.8 %; Mean Corpuscular HGB Conc 33.6 g/dL (31.6-35.5); Mean Corpuscular Hemoglobin 29.9 pg (28.0-33.3); Mean Corpuscular Volume 88.8 fL (83.0-100.0); Mean Platelet Volume 9.1 fL (9.4-12.4); Monocytes # 0.9 K/mcL (0.0-1.3); Monocytes % 11.9 %; Neutrophils # 4.7 K/mcL (1.6-8.9); Platelet Count 226 K/mcL (140-400); Red Blood Count 5.19 M/mcL (4.19-5.50); Red Cell Distribution Width 13.8 % (11.5-14.5); Segmented Neutrophils % 63.2 %
[2017-04-30 14:57] LABS: Bilirubin,Urine Negative (Negative); Blood,Urine Negative (Negative); Clarity,Urine Clear (Clear); Color,Urine Yellow (Yellow); Glucose,Urine (UA) Normal (Normal); Ketones,Urine Negative (Negative); Leukocyte Esterase,Urine Negative (Negative); Nitrite,Urine Negative (Negative); Protein,Urine 30 mg/dL (Neg-Trace); Specific Gravity,Urine > 1.030 (1.010-1.025); Urobilinogen,Urine Normal (Normal)
[2017-04-30 15:01] LABS: Amphetamine Screen,Urine Negative ng/mL (Cutoff=1000); Bacteria,Urine None Seen per hpf (None-Few); Barbiturate Screen,Urine Negative ng/mL (Cutoff=200); Benzodiazepines Screen,Urine Negative ng/mL (Cutoff=200); Cannabinoid Screen,Urine Negative ng/mL (Cutoff = 50); Cocaine Screen,Urine Negative ng/mL (Cutoff= 300); Hyaline Casts,Urine None Seen per lpf (None-Few); Opiate Screen,Urine Negative ng/mL (Cutoff=300); Phencyclidine Screen,Urine Negative ng/mL (Cutoff=25); RBC,Urine 0-3 per hpf (0-3); Squamous Epithelial Cell,Urine Few per lpf (None-Few); WBC,Urine 0-3 per hpf (0-3)
[2017-04-30 15:06] LABS: BUN/Creatinine Ratio 25 (6-26); Blood Urea Nitrogen 22 mg/dL (8-26); Calcium 10.2 mg/dL (8.6-10.8); Carbon Dioxide 23 mEq/L (19-29); Chloride 109 mEq/L (98-109); Glucose 103 mg/dL (70-99); Osmolality,Calculated 296 (280-300); Potassium 4.5 mEq/L (3.5-4.5); Sodium 141 mEq/L (136-145); eGFR For African Americans > 60 (> 60); eGFR For Non-African Americans > 60 (> 60)
[2017-04-30 15:07] LABS: Acetaminophen < 1.0 mcg/mL (10-30); Ethanol < 10 mg/dL (0-10); Salicylate < 5.0 mg/dL (15-30)
--- NOTE | 2017-04-30 16:05 | Emergency Department Note ---
Disposition Clinical Impression: Acute psychosis, Hallucinations Disposition: Admitted As Inpatient Condition: Good Referrals: NO,PCP [Primary Care Provider] - Forms: ED Satisfaction Letter Time of Disposition: 17:33 Psych HPI - General Chief Complaint: ED Psychiatric Symptoms Stated Complaint: needs 1A eval Time Seen by Provider: 04/30/17 14:24 Source: patient, EMS Mode of arrival: EMS Nursing Notes Reviewed: Yes Vital Signs Reviewed: Yes - History of Present Illness HPI Narrative: Patient presents emergency room from home for behavioral issues. Patient denies suicidal or homicidal thoughts. Patient has been seen several times for this in the past. He has been worked up treated and started on medications. Patient has hallucinations according to family and is speaking to God. No other recent medication changes injuries or trauma. Pt complaint: medical clearance request Onset (ago): day(s) Duration: constant History of similar episodes: Yes Improves with: medication Worsens with: none Context: other (That site.) Alleged intoxication: No Associated Psychiatric Symptoms: racing thoughts, auditory hallucinations, delusions Associated symptoms: Reports: denies other symptoms Traumatic symptoms: denies traumatic injury Treatments prior to arrival: none - Related Data Previous Rx's Medication Instructions Recorded ARIPiprazole [Abilify] 20 mg PO DAILY #60 tablet 01/23/17 Benztropine [Cogentin] 1 mg PO BID #60 tablet 01/23/17 Cholecalciferol (Vitamin D3) 5,000 unit PO DAILY #30 tab.chew 01/23/17 [Vitamin D3] Divalproex (12 HR) [Depakote (12 1,000 mg PO BID #120 tablet. 01/23/17 HR)] Divalproex Sodium [Depakote] 1,250 mg PO HS #150 tablet. 01/23/17 Esomeprazole Magnesium [Nexium] 20 mg PO DAILY #30 capsule. 01/23/17 Lisinopril [Zestril] 5 mg PO DAILY #30 tablet 01/23/17 [place] Carbonate 600 mg PO TID #90 capsule 01/23/17 Melatonin 3 mg PO HS #30 tablet 01/23/17 Metoprolol [Lopressor] 50 mg PO BID #60 tablet 01/23/17 Mv-Mn/FA/Vit K/Lycop/Lut/Coq10 1 cap PO DAILY #30 capsule 01/23/17 [Daily Multivitamin Capsule] risperiDONE [Risperdal] 4 mg PO BID #60 tablet 01/23/17 traZODone [TraZODone] 50 mg PO HS PRN #30 tablet 01/23/17 Allergies Allergy/AdvReac Type Severity Reaction Status Date / Time No Known Allergies Allergy Verified 04/30/17 14:28 All systems ED: reviewed and negative except as stated. Constitutional: Denies: fever, chills Cardiovascular: Denies: chest pain, palpitations, dyspnea on exertion Gastrointestinal: Denies: abdominal pain, nausea, vomiting, diarrhea Genitourinary: Denies: dysuria, frequency Musculoskeletal: Denies: back pain, neck pain Neurological: Denies: headache Past Medical History - Past Medical History Attestation: Yes The following information was validated with the patient. Source: patient Medical history: Reports: no medical history Surgical history: Reports: non-contributory Psychiatric history: Reports: bipolar, schizophrenia - Social History Smoking Status: Never smoker Smokeless Tobacco Status: No Alcohol use: Reports: none Drug use: Reports: none Physical Exam - General Limitations: no limitations General appearance: alert, in no apparent distress - Head Head exam: atraumatic, normocephalic, normal inspection - ENT ENT exam: normal exam, normal oropharynx, mucous membranes moist - Neck Neck exam: Present: normal inspection, full ROM, trachea midline - Chest Chest inspection: Present: normal inspection, symmetric chest wall rise - Respiratory Respiratory exam: Present: normal lung sounds bilaterally - Cardiovascular Cardiovascular exam: Present: regular rate, normal rhythm, normal heart sounds - Extremities Exam Extremities exam: Present: normal inspection, full ROM, normal capillary refill - Neurological Exam Neurological exam: Present: alert, oriented X3, CN II-XII intact, normal gait - Skin Skin exam: Present: warm, dry, intact, normal color Course Course Narrative: Patient seen and examined the time of arrival. See history of present illness. Patient presented by EMS for hallucinations and schizophrenic or presentation. Patient has long-standing history of psychiatric D issues. Not currently suicidal or homicidal. Patient is in no distress acting appropriately. Patient is talking to God in the room saying his way to save people and that he needs to go do God's work. Patient to have medical clearance completed this time. No other acute findings and physical exam exam with her and answering questions appropriately based on his mentation. Lungs are clear heart is regular. Lab orders were placed at this time patient to have severe placed at the bedside. - Reevaluation(s) Reevaluation #1: Patient evaluated by our psychiatric team after medical clearance was completed. Patient will be admitted to the facility for evaluation treatment. No other recommendations issues at this time Time: 17:31 Vital Signs Temperature 97.9 F 04/30/17 14:25 Pulse Rate 113 04/30/17 14:25 Respiratory Rate 16 04/30/17 14:25 Blood Pressure 137/84 04/30/17 14:25 O2 Sat by Pulse Oximetry 94 04/30/17 14:25 Temperature 97.9 F 04/30/17 14:25 Pulse Rate 113 04/30/17 14:25 Respiratory Rate 16 04/30/17 14:25 Blood Pressure 137/84 04/30/17 14:25 O2 Sat by Pulse Oximetry 94 04/30/17 14:25 Oxygen Delivery Oxygen Delivery Room Air Psych - MDM Narrative Medical decision making narrative: Hallucinations, delusional thoughts - Lab Data Lab results reviewed: Yes I reviewed the patient's lab results. Result diagrams: 04/30/17 14:41 04/30/17 14:41 Lab Results 04/30/17 04/30/17 04/30/17 Range/Units 14:41 14:41 14:42 WBC 7.4 (4.3-11.1) K/mcL RBC 5.19 (4.19-5.50) M/mcL Hgb 15.5 (12.9-16.9) g/dL Hct 46.1 (37.5-50.1) % MCV 88.8 (83.0-100.0) fL MCH 29.9 (28.0-33.3) pg MCHC 33.6 (31.6-35.5) g/dL RDW 13.8 (11.5-14.5) % Plt Count 226 (140-400) K/mcL MPV 9.1 L (9.4-12.4) fL Immature Gran % 0.5 (0-4) % Seg Neutrophils % 63.2 % Lymphocytes % 23.8 % Monocytes % 11.9 % Eosinophils % 0.3 % Basophils % 0.3 % Neutrophils # 4.7 (1.6-8.9) K/mcL Lymphocytes # 1.8 (0.6-4.6) K/mcL Monocytes # 0.9 (0.0-1.3) K/mcL Eosinophils # 0.0 (0.0-0.6) K/mcL Basophils # 0.0 (0.0-0.2) K/mcL Sodium 141 (136-145) mEq/L Potassium 4.5 (3.5-4.5) mEq/L Chloride 109 (98-109) mEq/L Carbon Dioxide 23 (19-29) mEq/L BUN 22 (8-26) mg/dL Creatinine 0.87 (0.72-1.25) mg/dL Est GFR ( Amer) > 60 (> 60) Est GFR (Non-Af Amer) > 60 (> 60) BUN/Creatinine Ratio 25 (6-26) Glucose 103 H (70-99) mg/dL Calculated Osmolality 296 (280-300) Calcium 10.2 (8.6-10.8) mg/dL Urine Color Yellow (Yellow) Urine Clarity Clear (Clear) Urine pH 6.0 (5.0-8.0) pH Units Ur Specific [place] > 1.030 H (1.010-1.025) Urine Protein 30 H (Neg-Trace) mg/dL Urine Glucose (UA) Normal (Normal) mg/dL Urine Ketones Negative (Negative) mg/dL Urine Blood Negative (Negative) Urine Nitrite Negative (Negative) Urine Bilirubin Negative (Negative) Urine Urobilinogen Normal (Normal) mg/dL Ur Leukocyte Esterase Negative (Negative) Urine Microscopic RBC 0-3 (0-3) per hpf Urine Microscopic WBC 0-3 (0-3) per hpf Ur Squamous Epith Cells Few (None-Few) per lpf Urine Bacteria None Seen (None-Few) per hpf Hyaline Casts None Seen (None-Few) per lpf Salicylates < 5.0 L (15-30) mg/dL Urine Opiates Screen (Syuovt=388) ng/mL Acetaminophen < 1.0 L (10-30) mcg/mL Ur Barbiturates Screen (Hukaqx=624) ng/mL Ur Phencyclidine Scrn (Cutoff=25) ng/mL Ur Amphetamines Screen (Frikki=2166) ng/mL U Benzodiazepines Scrn (Lrrenk=402) ng/mL Urine Cocaine Screen (Cutoff= 300) ng/mL U Marijuana (THC) Screen (Cutoff = 50) ng/mL Ethyl Alcohol < 10 (0-10) mg/dL 04/30/17 Range/Units 14:42 WBC (4.3-11.1) K/mcL RBC (4.19-5.50) M/mcL Hgb (12.9-16.9) g/dL Hct (37.5-50.1) % MCV (83.0-100.0) fL MCH (28.0-33.3) pg MCHC (31.6-35.5) g/dL RDW (11.5-14.5) % Plt Count (140-400) K/mcL MPV (9.4-12.4) fL Immature Gran % (0-4) % Seg Neutrophils % % Lymphocytes % % Monocytes % % Eosinophils % % Basophils % % Neutrophils # (1.6-8.9) K/mcL Lymphocytes # (0.6-4.6) K/mcL Monocytes # (0.0-1.3) K/mcL Eosinophils # (0.0-0.6) K/mcL Basophils # (0.0-0.2) K/mcL Sodium (136-145) mEq/L Potassium (3.5-4.5) mEq/L Chloride (98-109) mEq/L Carbon Dioxide (19-29) mEq/L BUN (8-26) mg/dL Creatinine (0.72-1.25) mg/dL Est GFR ( Amer) (> 60) Est GFR (Non-Af Amer) (> 60) BUN/Creatinine Ratio (6-26) Glucose (70-99) mg/dL Calculated Osmolality (280-300) Calcium (8.6-10.8) mg/dL Urine Color (Yellow) Urine Clarity (Clear) Urine pH (5.0-8.0) pH Units Ur Specific [place] (1.010-1.025) Urine Protein (Neg-Trace) mg/dL Urine Glucose (UA) (Normal) mg/dL Urine Ketones (Negative) mg/dL Urine Blood (Negative) Urine Nitrite (Negative) Urine Bilirubin (Negative) Urine Urobilinogen (Normal) mg/dL Ur Leukocyte Esterase (Negative) Urine Microscopic RBC (0-3) per hpf Urine Microscopic WBC (0-3) per hpf Ur Squamous Epith Cells (None-Few) per lpf Urine Bacteria (None-Few) per hpf Hyaline Casts (None-Few) per lpf Salicylates (15-30) mg/dL Urine Opiates Screen Negative (Kwzpfi=056) ng/mL Acetaminophen (10-30) mcg/mL Ur Barbiturates Screen Negative (Npvqzh=537) ng/mL Ur Phencyclidine Scrn Negative (Cutoff=25) ng/mL Ur Amphetamines Screen Negative (Spbnpy=1655) ng/mL U Benzodiazepines Scrn Negative (Wvehjb=653) ng/mL Urine Cocaine Screen Negative (Cutoff= 300) ng/mL U Marijuana (THC) Screen Negative (Cutoff = 50) ng/mL Ethyl Alcohol (0-10) mg/dL Psychiatric Medical Clearance - Medical Clearance Checklist Does the patient have a NEW psychiatric condition?: No Any abnormalities indicating possible medical illness?: No Any history of medical issues?: No Medical History: No Social History Section defined Any abnormal vital signs prior to transfer?: No Current Vitals: Last Vital Signs Temp 97.9 F 04/30/17 14:25 Pulse 113 04/30/17 14:25 Resp 16 04/30/17 14:25 BP 137/84 04/30/17 14:25 Pulse Ox 94 04/30/17 14:25 Is the patient intoxicated or cognitively impaired?: No Psychiatric Lab Panel: Drug Levels and Toxicity 04/30/17 04/30/17 14:41 14:42 Urine Opiates Screen Negative Acetaminophen < 1.0 L Ur Barbiturates Screen Negative Ur Phencyclidine Scrn Negative Ur Amphetamines Screen Negative U Benzodiazepines Scrn Negative Urine Cocaine Screen Negative U Marijuana (THC) Screen Negative Ethyl Alcohol < 10 Any abnormalities on the physical exam?: No Any abnormal labs?: No Abnormal Labs: Abnormal lab results MPV 9.1 fL (9.4-12.4) L 04/30/17 14:41 Glucose 103 mg/dL (70-99) H 04/30/17 14:41 Ur Specific [place] > 1.030 (1.010-1.025) H 04/30/17 14:42 Urine Protein 30 mg/dL (Neg-Trace) H 04/30/17 14:42 Salicylates < 5.0 mg/dL (15-30) L 04/30/17 14:41 Acetaminophen < 1.0 mcg/mL (10-30) L 04/30/17 14:41 Does the patient require durable medical equiptment?: No Is the patient ambulatory?: Yes Is the patient a fall risk?: No Has the patient been medically cleared?: Yes Any acute medical condition require Tx prior to transfer?: No Statement of Medical Clearance: I have evaluated the patient, reviewed diagnostic information, and certify that the patient's medical condition is sufficiently stable that transfer to the psychiatric unit does not pose a significant risk of deterioration.
[2017-04-30] MEDS ORDERED: Haloperidol Lactate 5 MG/ML VIAL IM PRN ×2 (18:29→18:35)
[2017-04-30] MEDS ORDERED: MOM Conc 10 ML UD.LIQ PO PRN (18:29)
[2017-04-30] MEDS ORDERED: *HR* LORazepam 2 MG/ML VIAL IM PRN ×2 (18:29→18:37)
[2017-04-30] MEDS ORDERED: *HR* LORazepam 1 MG TABLET PO PRN ×2 (18:29→18:36)
[2017-04-30] MEDS: traZODone 50 MG TABLET PO PRN (21:08)
[2017-04-30] MEDS: Acetaminophen 325 MG TABLET PO PRN (21:09)
[2017-04-30] MEDS: hydrOXYzine pamoate 25 MG CAPSULE PO PRN (21:09)
--- NOTE | 2017-05-01 11:43 | Psychiatry History & Physical ---
Date of Encounter: 05/01/17 Time of Encounter: 11:20 History of Present Illness Patient Stated Chief Complaint: "I feel weak." Medicare Admission Attestation: For traditional Medicare patients the provided hospital inpatient services are reasonable and necessary and in the case of services not specified as inpatient -only under 42 CFR 419.22 (n), that they are appropriately provided as inpatient services in accordance 42 CFR 412.3. For Critical [facility] the patient may reasonably be expected to be discharged or transferred to a hospital within 96 hours after admission to the Critical Access Hospital. Admitted From: Emergency Dept History of Present Illness: Mr. Prado is a 27 year old male with a history of bipolar disorder with psychotic features, personality disorder who presented to the hospital with increasing auditory hallucinations, homelessness, decreased leave over the past 4-5 days. Patient states that he was staying with his mother. He has a recent admission to [facility] with discharge in late December. Since that time he has been staying with his mother. Patient reports that he is not sure why but mom told him a few days ago that he could no longer stay with her. He has a history of behavioral issues and has struggled with relationship problems in the past. He denies suicidal or homicidal ideation. He denies he is hearing voices but has reported to staff earlier today that he hears the voice of Cristiano and "he is my only support." Patient states that he has been taking his medications as prescribed. However several medications he was discharged on is no longer taking. Patient may have had met adjustments but does not verbalize whether or not he has been following up with outpatient providers. Patient states that he has not been eating or sleeping normally from past 4-5 days and asked why he "feels so weak." Patient does not have any place to go back because of when he is discharged. Patient has also been acting bizarrely on unit and was making odd statements to staff yesterday evening and this morning. His thought process is somewhat disjointed and concrete but reality based during the interview. Past Med Surg Social Fam HX - Past Medical History Medical history: no medical history - Past Psychiatric History Psychiatric history: Reports: previous psychiatric hospitalization Past psychiatric history details: Patient has previous psychiatric admissions. History of multiple psychiatric issues including ADHD and substance abuse. Family psychiatric history: No Family History of Suicide: None - Past Surgical History Surgical History: non-contributory - Social History Smoking Status: Never smoker Smokeless Tobacco Status: No Alcohol use: none Drug use: none, marijuana (In the past) Current living situation: Homeless Medications & Allergies Cholecalciferol (Vitamin D3) [Vitamin D3] 5,000 unit PO DAILY #30 tab.chew 01/23 [Rx] Lisinopril [Zestril] 5 mg PO DAILY #30 tablet 01/23/17 [Rx] Melatonin 3 mg PO HS #30 tablet 01/23/17 [Rx] Mv-Mn/FA/Vit K/Lycop/Lut/Coq10 [Daily Multivitamin Capsule] 1 cap PO DAILY #30 capsule 01/23/17 [Rx] traZODone [TraZODone] 50 mg PO HS PRN #30 tablet 01/23/17 [Rx] Divalproex (24 HR) [Depakote ER (24 HR)] 1,000 mg PO QAM 05/01/17 [History] Divalproex (24 HR) [Depakote ER (24 HR)] 1,500 mg PO HS 05/01/17 [History] Fluphenazine [Prolixin] 10 mg PO BID 05/01/17 [History] Omeprazole [PriLOSEC] 20 mg PO DAILY 05/01/17 [History] Allergies No Known Allergies Allergy (Verified 04/30/17 14:28) Review of Systems Constitutional: Reports: weakness. Denies: fever, chills, weight change Eyes: Denies: eye pain, vision change Ears, Nose, Throat: Denies: ear pain, throat pain, dental pain, hearing loss, congestion Cardiovascular: Denies: chest pain, palpitations, dyspnea on exertion Respiratory: Denies: cough, dyspnea, wheezes Gastrointestinal: Denies: abdominal pain, nausea, vomiting, diarrhea, constipation Genitourinary male: Denies: urgency, dysuria, frequency, genital lesions Genitourinary female: Denies: urgency, dysuria, frequency, abnormal menses, dyspareunia Musculoskeletal: Denies: joint swelling, joint pain Integumentary: Denies: rash, lesions, pruritus Neurological: Denies: headache, weakness, numbness, memory loss Psychiatric: Reports: depression, abnormal sleep pattern, auditory hallucinations, confusion, difficulty concentrating, irritability Endocrine: Denies: fatigue, heat or cold intolerance Hematologic/Lymphatic: Denies: easy bruising, lymphadenopathy Allergic/Immunologic: Denies: urticaria, itchy eyes Mental Status Exam Patient orientation: Yes Person, No Time, Yes Place, Yes Circumstance Level of alertness: Alert Patient appearance: Unkempt Behavior: suspicious, distractible, dramatic Psychomotor activity: Normal Eye contact: Diverts Contact Mood description: Depressed Affect description: blunted Speech pattern: Slowed Speech volume: Normal Thought process: Circumstantial, [place] Thought content: No Suicidal ideation Perceptual disturbances: Yes Reacting to internal stimuli, Yes Auditory hallucinations Attention span: Capable of Focused Attention Memory description: Grossly Intact Patient reliability: Questionable Historian Intelligence estimate: Average Judgment: Poor Insight: None Exam - HEENT Head exam IM: Present: atraumatic Eye exam IM: Present: EOMI - Neurological Neurological exam IM: Present: CN II-XII intact Results - Vital Signs Vital signs: Temp Pulse Resp BP Pulse Ox 97.9 F 103 16 126/75 94 05/01/17 09:00 05/01/17 09:00 05/01/17 09:00 05/01/17 09:00 04/30/17 14:25 - Labs Labs: Laboratory Last Values WBC 7.4 K/mcL (4.3-11.1) 04/30/17 14:41 RBC 5.19 M/mcL (4.19-5.50) 04/30/17 14:41 Hgb 15.5 g/dL (12.9-16.9) 04/30/17 14:41 Hct 46.1 % (37.5-50.1) 04/30/17 14:41 MCV 88.8 fL (83.0-100.0) 04/30/17 14:41 MCH 29.9 pg (28.0-33.3) 04/30/17 14:41 MCHC 33.6 g/dL (31.6-35.5) 04/30/17 14:41 RDW 13.8 % (11.5-14.5) 04/30/17 14:41 Plt Count 226 K/mcL (140-400) 04/30/17 14:41 MPV 9.1 fL (9.4-12.4) L 04/30/17 14:41 Immature Gran % 0.5 % (0-4) 04/30/17 14:41 Seg Neutrophils % 63.2 % 04/30/17 14:41 Lymphocytes % 23.8 % 04/30/17 14:41 Monocytes % 11.9 % 04/30/17 14:41 Eosinophils % 0.3 % 04/30/17 14:41 Basophils % 0.3 % 04/30/17 14:41 Neutrophils # 4.7 K/mcL (1.6-8.9) 04/30/17 14:41 Lymphocytes # 1.8 K/mcL (0.6-4.6) 04/30/17 14:41 Monocytes # 0.9 K/mcL (0.0-1.3) 04/30/17 14:41 Eosinophils # 0.0 K/mcL (0.0-0.6) 04/30/17 14:41 Basophils # 0.0 K/mcL (0.0-0.2) 04/30/17 14:41 Sodium 141 mEq/L (136-145) 04/30/17 14:41 Potassium 4.5 mEq/L (3.5-4.5) 04/30/17 14:41 Chloride 109 mEq/L (98-109) 04/30/17 14:41 Carbon Dioxide 23 mEq/L (19-29) 04/30/17 14:41 BUN 22 mg/dL (8-26) 04/30/17 14:41 Creatinine 0.87 mg/dL (0.72-1.25) 04/30/17 14:41 Est GFR ( Amer) > 60 (> 60) 04/30/17 14:41 Est GFR (Non-Af Amer) > 60 (> 60) 04/30/17 14:41 BUN/Creatinine Ratio 25 (6-26) 04/30/17 14:41 Glucose 103 mg/dL (70-99) H 04/30/17 14:41 Calculated Osmolality 296 (280-300) 04/30/17 14:41 Calcium 10.2 mg/dL (8.6-10.8) 04/30/17 14:41 Urine Color Yellow (Yellow) 04/30/17 14:42 Urine Clarity Clear (Clear) 04/30/17 14:42 Urine pH 6.0 pH Units (5.0-8.0) 04/30/17 14:42 Ur Specific [place] > 1.030 (1.010-1.025) H 04/30/17 14:42 Urine Protein 30 mg/dL (Neg-Trace) H 04/30/17 14:42 Urine Glucose (UA) Normal mg/dL (Normal) 04/30/17 14:42 Urine Ketones Negative mg/dL (Negative) 04/30/17 14:42 Urine Blood Negative (Negative) 04/30/17 14:42 Urine Nitrite Negative (Negative) 04/30/17 14:42 Urine Bilirubin Negative (Negative) 04/30/17 14:42 Urine Urobilinogen Normal mg/dL (Normal) 04/30/17 14:42 Ur Leukocyte Esterase Negative (Negative) 04/30/17 14:42 Urine Microscopic RBC 0-3 per hpf (0-3) 04/30/17 14:42 Urine Microscopic WBC 0-3 per hpf (0-3) 04/30/17 14:42 Ur Squamous Epith Cells Few per lpf (None-Few) 04/30/17 14:42 Urine Bacteria None Seen per hpf (None-Few) 04/30/17 14:42 Hyaline Casts None Seen per lpf (None-Few) 04/30/17 14:42 Salicylates < 5.0 mg/dL (15-30) L 04/30/17 14:41 Urine Opiates Screen Negative ng/mL (Ccpdnx=154) 04/30/17 14:42 Acetaminophen < 1.0 mcg/mL (10-30) L 04/30/17 14:41 Ur Barbiturates Screen Negative ng/mL (Gqeemq=375) 04/30/17 14:42 Valproic Acid 48.38 mcg/mL (50-100) L 04/30/17 16:23 Ur Phencyclidine Scrn Negative ng/mL (Cutoff=25) 04/30/17 14:42 Ur Amphetamines Screen Negative ng/mL (Iiwyih=1285) 04/30/17 14:42 U Benzodiazepines Scrn Negative ng/mL (Vuxngw=100) 04/30/17 14:42 Brenda < 0.1 mEq/L (0.6-1.2) L 04/30/17 16:23 Urine Cocaine Screen Negative ng/mL (Cutoff= 300) 04/30/17 14:42 U Marijuana (THC) Screen Negative ng/mL (Cutoff = 50) 04/30/17 14:42 Ethyl Alcohol < 10 mg/dL (0-10) 04/30/17 14:41 Assessment and Plan (1) Bipolar disorder with psychotic features Current visit: No Status: Acute Plan: Admit inpatient for safety and stabilization, Close observation, Suicide Precautions per unit protocol, Encourage participation in unit milieu, Group Therapy, Monitor sleep, Monitor appetite Additional Plan: Patient has long-standing history of psychosis and behavioral issues as well. Reviewed outpatient medications and previous hospitalization. We will restart Depakote and Prolixin as these of the medications patient has been taking. Monitoring and other meds as needed. Risks, benefits, side effects, alternatives discussed w/pt: Yes Patient agreeable to treatment: Yes Plans for Post Hospital Care: Home Estimated Length of Stay (Days): 3 (2) Personality disorder Current visit: Yes Status: Acute Plan: Admit inpatient for safety and stabilization, Close observation, Suicide Precautions per unit protocol, Encourage participation in unit milieu, Group Therapy, Monitor sleep, Monitor appetite Additional Plan: We will encourage positive coping strategies for patient. Work on discharge planning as patient may be hard to place given his past behavioral issues. Risks, benefits, side effects, alternatives discussed w/pt: Yes Patient agreeable to treatment: Yes
[2017-05-01] MEDS: Multivit/Ca/Min/Fe/FA 1 TAB TABLET PO SCH (14:34)
[2017-05-01] MEDS: Cholecalciferol (D-3) 1,000 UNIT TABLET PO SCH (14:36)
[2017-05-01] MEDS: Divalproex (24 HR) 500 MG TABLET PO SCH ×2 (14:43→20:08)
[2017-05-01] MEDS: traZODone 50 MG TABLET PO PRN (20:07)
[2017-05-01] MEDS: Acetaminophen 325 MG TABLET PO PRN (20:07)
[2017-05-01] MEDS: hydrOXYzine pamoate 25 MG CAPSULE PO PRN (20:08)
[2017-05-01] MEDS: Mag Hydrox/Al Hydrox/Simeth 30 ML UDC PO PRN (20:27)
[2017-05-02] MEDS: Acetaminophen 325 MG TABLET PO PRN ×3 (02:38→17:23)
[2017-05-02] MEDS: hydrOXYzine pamoate 25 MG CAPSULE PO PRN ×2 (02:39→20:13)
[2017-05-02] MEDS ORDERED: Cholecalciferol (D-3) 1,000 UNIT TABLET PO SCH (09:00)
[2017-05-02] MEDS ORDERED: Multivit/Ca/Min/Fe/FA 1 TAB TABLET PO SCH (09:00)
[2017-05-02] MEDS ORDERED: Divalproex (24 HR) 500 MG TABLET PO SCH (09:00)
[2017-05-02] MEDS: Divalproex (24 HR) 500 MG TABLET PO SCH ×2 (09:01→20:11)
[2017-05-02] MEDS: Multivit/Ca/Min/Fe/FA 1 TAB TABLET PO SCH (09:02)
[2017-05-02] MEDS: Cholecalciferol (D-3) 1,000 UNIT TABLET PO SCH (09:03)
--- NOTE | 2017-05-02 11:27 | Psychiatry Progress Note ---
Date of Encounter: 05/02/17 Review of Systems Psychiatric: Reports: depression, abnormal sleep pattern, auditory hallucinations, confusion, difficulty concentrating, irritability Results - Vital Signs Vital Signs: Temp Pulse Resp BP Pulse Ox 98.6 F 96 16 142/77 94 05/02/17 09:00 05/02/17 09:00 05/02/17 09:00 05/02/17 09:00 04/30/17 14:25 Consult Discharge Plan - Plan Referrals: NO,PCP [Primary Care Provider] -
--- NOTE | 2017-05-02 11:39 | Psychiatry Progress Note ---
Date of Encounter: 05/02/17 Time of Encounter: 11:00 Subjective Interval history: Patient seen and interviewed. History and physical examination reviewed. Patient appears flat and dysphoric. Guarded and suspicious. Concern and overwhelmed with housing situation. Denying any auditory or visual hallucinations. Denying suicidal ideations but unable to contract for safety off the unit. Tolerating medications fairly well. Review of Systems Psychiatric: Reports: depression, abnormal sleep pattern, difficulty concentrating, irritability Objective: Exam Patient orientation: Yes Person, Yes Time, Yes Place Level of alertness: Alert Patient appearance: Unkempt Behavior: guarded, suspicious Psychomotor activity: Slowed Eye contact: Maintains Eye Contact Mood description: Euthymic/stable Affect description: blunted, flat, dysphoric Speech pattern: Monotone Speech volume: Normal, No variation in volume Thought process: Evasive, Slowed Thinking Thought content: Yes Taoism delusion Perceptual disturbances: No Auditory hallucinations, No Visual hallucinations Judgment: Limited Insight: Minimal Results - Vital Signs Vital Signs: Temp Pulse Resp BP Pulse Ox 98.6 F 96 16 142/77 94 05/02/17 09:00 05/02/17 09:00 05/02/17 09:00 05/02/17 09:00 04/30/17 14:25 Assessment and Plan (1) Bipolar disorder with psychotic features Current visit: No Status: Acute Plan: Continue hospitalization, Close observation, Suicide Precautions per unit protocol, Encourage participation in unit milieu, Group Therapy, Monitor sleep, Monitor appetite Additional Plan: Continue with the current regime of medications Risks, benefits, side effects, alternatives discussed w/pt: Yes Patient agreeable to treatment: Yes (2) Personality disorder Current visit: Yes Status: Acute Plan: Continue hospitalization, Close observation, Suicide Precautions per unit protocol, Encourage participation in unit milieu, Group Therapy, Monitor sleep, Monitor appetite Additional Plan: We will encourage positive coping strategies for patient. Work on discharge planning as patient may be hard to place given his past behavioral issues. Risks, benefits, side effects, alternatives discussed w/pt: Yes Patient agreeable to treatment: Yes Consult Discharge Plan - Plan Referrals: NO,PCP [Primary Care Provider] -
[2017-05-02] MEDS: Mag Hydrox/Al Hydrox/Simeth 30 ML UDC PO PRN (17:25)
[2017-05-02] MEDS: traZODone 50 MG TABLET PO PRN (20:11)
[2017-05-03] MEDS: Cholecalciferol (D-3) 1,000 UNIT TABLET PO SCH (08:28)
[2017-05-03] MEDS: Divalproex (24 HR) 500 MG TABLET PO SCH ×2 (08:29→20:01)
[2017-05-03] MEDS: Multivit/Ca/Min/Fe/FA 1 TAB TABLET PO SCH (08:29)
--- NOTE | 2017-05-03 11:43 | Psychiatry Progress Note ---
Date of Encounter: 05/03/17 Time of Encounter: 11:10 Subjective Interval history: Patient seen and interviewed. Continued to report some generalized weakness and fatigue. Sleeping and eating okay. Denying any overt psychosis do or any suicidal or homicidal ideations. Did appear flat and dysphoric. Patient is extremely worried and concerned about his housing situation since he is homeless. Patient reported that his friend will reach out to her social science research assistant to discuss housing options for him tomorrow. I encouraged the patient to attend groups or participate in activities. Overall patient's condition is stable. Awaiting housing. Review of Systems Psychiatric: Reports: depression, abnormal sleep pattern, difficulty concentrating, irritability Objective: Exam Patient orientation: Yes Person, Yes Time, Yes Place Level of alertness: Alert Patient appearance: Unkempt Behavior: withdrawn Psychomotor activity: Slowed Eye contact: Maintains Eye Contact Mood description: Depressed Affect description: flat Speech pattern: Normal rate, Normal rhythm, Normal tone Speech volume: Normal Thought process: Linear, Goal Oriented Thought content: No Suicidal ideation, No Homicidal ideation, No Overt delusions Perceptual disturbances: No Auditory hallucinations, No Visual hallucinations Judgment: Fair Insight: Partial Results - Vital Signs Vital Signs: Temp Pulse Resp BP Pulse Ox 97.6 F 88 17 134/75 94 05/03/17 08:26 05/03/17 08:26 05/03/17 08:26 05/03/17 08:26 04/30/17 14:25 Assessment and Plan (1) Bipolar disorder with psychotic features Current visit: No Status: Acute Plan: Continue hospitalization, Close observation, Suicide Precautions per unit protocol, Encourage participation in unit milieu, Group Therapy, Monitor sleep, Monitor appetite Additional Plan: Continue with current medications. Patient's condition is stable. Awaiting placement issues. Possible discharge tomorrow Risks, benefits, side effects, alternatives discussed w/pt: Yes Patient agreeable to treatment: Yes (2) Personality disorder Current visit: Yes Status: Acute Plan: Continue hospitalization, Close observation, Suicide Precautions per unit protocol, Encourage participation in unit milieu, Group Therapy, Monitor sleep, Monitor appetite Risks, benefits, side effects, alternatives discussed w/pt: Yes Patient agreeable to treatment: Yes Consult Discharge Plan - Plan Referrals: NO,PCP [Primary Care Provider] -
[2017-05-03] MEDS: traZODone 50 MG TABLET PO PRN (20:01)
[2017-05-03] MEDS: Acetaminophen 325 MG TABLET PO PRN (20:30)
[2017-05-04] MEDS: hydrOXYzine pamoate 25 MG CAPSULE PO PRN (00:37)
[2017-05-04] MEDS: Acetaminophen 325 MG TABLET PO PRN ×2 (03:25→17:44)
[2017-05-04] MEDS: Divalproex (24 HR) 500 MG TABLET PO SCH ×2 (09:01→20:12)
[2017-05-04] MEDS: Cholecalciferol (D-3) 1,000 UNIT TABLET PO SCH (09:02)
[2017-05-04] MEDS: Multivit/Ca/Min/Fe/FA 1 TAB TABLET PO SCH (09:02)
--- NOTE | 2017-05-04 11:59 | Psychiatry Progress Note ---
Date of Encounter: 05/04/17 Time of Encounter: 11:54 Subjective Interval history: Client appears psychotic. Met this verse writer for the first time today. Immediately wanted to know what [facility] I attend. Asked multiple times even though this verse writer informed him this was personal information that would not be discussed. Client reported he has been sleeping well but staff report last night he was up and down all night. He told staff there were demons in all of the rooms and he started making the signs of the cross in everyone's doorway. Given and complied with prns. Reports his mood is good. Denies symptoms of psychosis but he is actively psychotic. Homeless. Transient. Travels between cities. Mother lives in [place] but does not want to be involved with him. According to staff he is usually admitted in a floridly psychotic/manic state. Will likely be a placement issue but may need meds increased before then. Review of Systems Constitutional: Denies: fever, chills, weakness, weight change Eyes: Denies: eye pain, vision change Ears, Nose, Throat: Denies: ear pain, throat pain, dental pain, hearing loss, congestion Cardiovascular: Denies: chest pain, palpitations, dyspnea on exertion Respiratory: Denies: cough, dyspnea, wheezes Gastrointestinal: Denies: abdominal pain, nausea, vomiting, diarrhea, constipation Musculoskeletal: Denies: joint swelling, joint pain Neurological: Denies: headache, weakness, numbness, memory loss Psychiatric: Reports: depression, abnormal sleep pattern, difficulty concentrating, irritability Objective: Exam Patient orientation: Yes Person, Yes Time, Yes Place Level of alertness: Alert Patient appearance: Unkempt, Disheveled Behavior: calm, cooperative Psychomotor activity: Normal Eye contact: Intense Contact Mood description: Euphoric Affect description: congruent with mood Speech pattern: Normal rate, Normal rhythm, Normal tone Speech volume: Normal Thought process: Perseveration Thought content: Yes Preoccupation, Yes Yazdanism delusion Perceptual disturbances: Yes Reacting to internal stimuli Judgment: Limited Insight: Minimal Results - Vital Signs Vital Signs: Temp Pulse Resp BP Pulse Ox 98.3 F 93 18 125/85 94 05/04/17 09:00 05/04/17 09:00 05/04/17 09:00 05/04/17 09:00 04/30/17 14:25 Assessment and Plan (1) Bipolar disorder with psychotic features Current visit: No Status: Acute Plan: Continue hospitalization, Close observation, Suicide Precautions per unit protocol, Encourage participation in unit milieu, Group Therapy, Monitor sleep, Monitor appetite Risks, benefits, side effects, alternatives discussed w/pt: Yes Patient agreeable to treatment: Yes Consult Discharge Plan - Plan Referrals: NO,PCP [Primary Care Provider] -
[2017-05-04] MEDS: Mag Hydrox/Al Hydrox/Simeth 30 ML UDC PO PRN (17:44)
[2017-05-04] MEDS: traZODone 50 MG TABLET PO PRN (20:13)
[2017-05-05] MEDS: Divalproex (24 HR) 500 MG TABLET PO SCH ×2 (09:02→20:40)
[2017-05-05] MEDS: Multivit/Ca/Min/Fe/FA 1 TAB TABLET PO SCH (09:03)
[2017-05-05] MEDS: Cholecalciferol (D-3) 1,000 UNIT TABLET PO SCH (09:03)
--- NOTE | 2017-05-05 13:20 | Psychiatry Progress Note ---
Date of Encounter: 05/05/17 Time of Encounter: 13:14 Subjective Interval history: Gonzalez presents much the same. He continues to be religiously preoccupied. He won't attend any groups and indicated he already has coping skills (to his credit he is able to list valuable coping skills). He spends most of his time reading his book of psalms. Rather intrusive-he paced outside this quality analyst/technical writer's office and then barged in as soon as another patient exited without being asked or invited. Did the same thing yesterday. Can be demanding but staff report he is doing better with this. Definitely improved over prior presentations but still needs more time. Has consistently denied AH to this quality analyst/technical writer but told the evening shift staff last night that he hears God's voice. Presents as psychotic. He is agreeable to going to [facility] or another half-way which he will need. Awaiting word from [facility] as to whether or not they will pay for him to go to [facility]. Hopefully he will be discharge ready once word comes through. Review of Systems Constitutional: Denies: fever, chills, weakness, weight change Eyes: Denies: eye pain, vision change Ears, Nose, Throat: Denies: ear pain, throat pain, dental pain, hearing loss, congestion Cardiovascular: Denies: chest pain, palpitations, dyspnea on exertion Respiratory: Denies: cough, dyspnea, wheezes Gastrointestinal: Denies: abdominal pain, nausea, vomiting, diarrhea, constipation Musculoskeletal: Denies: joint swelling, joint pain Neurological: Denies: headache, weakness, numbness, memory loss Psychiatric: Reports: depression, abnormal sleep pattern, difficulty concentrating, irritability Objective: Exam Patient orientation: Yes Person, Yes Time, Yes Place Level of alertness: Alert Patient appearance: Unkempt Behavior: restless Psychomotor activity: Normal Eye contact: Intense Contact Mood description: Euthymic/stable Affect description: blunted Speech pattern: Normal rate, Normal rhythm, Normal tone Speech volume: Normal Thought process: Perseveration Thought content: No Suicidal ideation, No Homicidal ideation, Yes Overt delusions, Yes Preoccupation, Yes Mandaen delusion Perceptual disturbances: Yes Reacting to internal stimuli Judgment: Limited Insight: Minimal Results - Vital Signs Vital Signs: Temp Pulse Resp BP Pulse Ox 98.4 F 105 16 131/79 94 05/05/17 09:00 05/05/17 09:00 05/05/17 09:00 05/05/17 09:00 04/30/17 14:25 Assessment and Plan (1) Bipolar disorder with psychotic features Current visit: No Status: Acute Plan: Continue hospitalization, Close observation, Suicide Precautions per unit protocol, Encourage participation in unit milieu, Group Therapy, Monitor sleep, Monitor appetite Risks, benefits, side effects, alternatives discussed w/pt: Yes Patient agreeable to treatment: Yes Consult Discharge Plan - Plan Referrals: NO,PCP [Primary Care Provider] -
[2017-05-05] MEDS: Acetaminophen 325 MG TABLET PO PRN (15:08)
[2017-05-05] MEDS: Mag Hydrox/Al Hydrox/Simeth 30 ML UDC PO PRN (18:24)
[2017-05-05] MEDS: traZODone 50 MG TABLET PO PRN (21:48)
[2017-05-06] MEDS: Multivit/Ca/Min/Fe/FA 1 TAB TABLET PO SCH (09:32)
[2017-05-06] MEDS: Cholecalciferol (D-3) 1,000 UNIT TABLET PO SCH (09:33)
[2017-05-06] MEDS: Divalproex (24 HR) 500 MG TABLET PO SCH ×2 (09:34→20:25)
[2017-05-06] MEDS: Mag Hydrox/Al Hydrox/Simeth 30 ML UDC PO PRN ×2 (09:39→17:15)
--- NOTE | 2017-05-06 11:28 | Psychiatry Progress Note ---
Date of Encounter: 05/06/17 Time of Encounter: 11:24 Subjective Interval history: Seems to be doing better. Still religiously preoccupied but less so. More redirectable when he becomes intrusive. According to staff he was medicated every 4 hours around the clock the last time he was here so his clinical presentation is improved overall. Harsh Gallegos will be out to evaluate him tomorrow. Since client is likely at or near his baseline he can be discharged once accepted. Client reports his mood is good. He denies SI/HI. Likely has psychotic symptoms at baseline but he is managing them well given his history. Review of Systems Constitutional: Denies: fever, chills, weakness, weight change Eyes: Denies: eye pain, vision change Ears, Nose, Throat: Denies: ear pain, throat pain, dental pain, hearing loss, congestion Cardiovascular: Denies: chest pain, palpitations, dyspnea on exertion Respiratory: Denies: cough, dyspnea, wheezes Gastrointestinal: Denies: abdominal pain, nausea, vomiting, diarrhea, constipation Musculoskeletal: Denies: joint swelling, joint pain Neurological: Denies: headache, weakness, numbness, memory loss Psychiatric: Reports: depression, abnormal sleep pattern, difficulty concentrating, irritability Objective: Exam Patient orientation: Yes Person, Yes Time, Yes Place Level of alertness: Alert Patient appearance: Unkempt Behavior: restless Psychomotor activity: Normal Eye contact: Intense Contact Mood description: Euthymic/stable Affect description: blunted Speech pattern: Normal rate, Normal rhythm, Normal tone Speech volume: Normal Thought process: Intact Thought content: No Suicidal ideation, No Homicidal ideation, Yes Preoccupation , Yes Anabaptism delusion Perceptual disturbances: Yes Reacting to internal stimuli Judgment: Limited Insight: Partial Results - Vital Signs Vital Signs: Temp Pulse Resp BP Pulse Ox 98 F 101 24 112/76 94 05/06/17 09:00 05/06/17 09:00 05/06/17 09:00 05/06/17 09:00 04/30/17 14:25 Assessment and Plan (1) Bipolar disorder with psychotic features Current visit: No Status: Acute Plan: Continue hospitalization, Close observation, Suicide Precautions per unit protocol, Encourage participation in unit milieu, Group Therapy, Monitor sleep, Monitor appetite Risks, benefits, side effects, alternatives discussed w/pt: Yes Patient agreeable to treatment: Yes Consult Discharge Plan - Plan Referrals: NO,PCP [Primary Care Provider] -
[2017-05-06] MEDS: Acetaminophen 325 MG TABLET PO PRN (18:39)
[2017-05-06] MEDS: traZODone 50 MG TABLET PO PRN (20:24)
[2017-05-07] MEDS: Cholecalciferol (D-3) 1,000 UNIT TABLET PO SCH (09:30)
[2017-05-07] MEDS: Loratadine 10 MG TABLET PO SCH (09:31)
[2017-05-07] MEDS: Divalproex (24 HR) 500 MG TABLET PO SCH ×2 (09:31→21:02)
[2017-05-07] MEDS: Multivit/Ca/Min/Fe/FA 1 TAB TABLET PO SCH (09:32)
[2017-05-07] MEDS: hydrOXYzine pamoate 25 MG CAPSULE PO PRN ×2 (09:32→17:27)
--- NOTE | 2017-05-07 15:52 | Psychiatry Progress Note ---
Date of Encounter: 05/07/17 Time of Encounter: 15:49 Subjective Interval history: According to staff Gonzalez was agitated this morning. Tried to take bedside table into shower with him. Became upset when told he could not do this. Had to take prns to help him calm down. Cooperative with this auto service writer today. Still has a very intense stare but less religiously preoccupied. Evaluated by [facility] yesterday but they turned him down. Placement is an ongoing issue as client's home county does not have any residential options. Staff may need to rely on family members but Gonzalez has burned many bridges. Too psychotic at his baseline to care for himself. Review of Systems Constitutional: Denies: fever, chills, weakness, weight change Eyes: Denies: eye pain, vision change Ears, Nose, Throat: Denies: ear pain, throat pain, dental pain, hearing loss, congestion Cardiovascular: Denies: chest pain, palpitations, dyspnea on exertion Respiratory: Denies: cough, dyspnea, wheezes Gastrointestinal: Denies: abdominal pain, nausea, vomiting, diarrhea, constipation Musculoskeletal: Denies: joint swelling, joint pain Neurological: Denies: headache, weakness, numbness, memory loss Psychiatric: Reports: depression, abnormal sleep pattern, difficulty concentrating, irritability Objective: Exam Patient orientation: Yes Person, Yes Time, Yes Place Level of alertness: Alert Patient appearance: Unkempt Behavior: calm Psychomotor activity: Normal Eye contact: Intense Contact Mood description: Euthymic/stable Affect description: blunted Speech pattern: Normal rate, Normal rhythm, Normal tone Speech volume: Normal Thought process: Circumstantial Thought content: No Suicidal ideation, No Homicidal ideation, Yes Preoccupation Perceptual disturbances: Yes Reacting to internal stimuli Judgment: Limited Insight: Minimal Results - Vital Signs Vital Signs: Temp Pulse Resp BP Pulse Ox 97.3 F L 103 16 111/75 94 05/07/17 09:00 05/07/17 09:00 05/07/17 09:00 05/07/17 09:00 04/30/17 14:25 Assessment and Plan (1) Bipolar disorder with psychotic features Current visit: No Status: Acute Plan: Continue hospitalization, Close observation, Suicide Precautions per unit protocol, Encourage participation in unit milieu, Group Therapy, Monitor sleep, Monitor appetite Risks, benefits, side effects, alternatives discussed w/pt: Yes Patient agreeable to treatment: Yes Consult Discharge Plan - Plan Referrals: NO,PCP [Primary Care Provider] -
[2017-05-07] MEDS: traZODone 50 MG TABLET PO PRN (21:02)
[2017-05-08] MEDS: Loratadine 10 MG TABLET PO SCH (08:18)
[2017-05-08] MEDS: Cholecalciferol (D-3) 1,000 UNIT TABLET PO SCH (08:18)
[2017-05-08] MEDS: Multivit/Ca/Min/Fe/FA 1 TAB TABLET PO SCH (08:19)
[2017-05-08] MEDS: Divalproex (24 HR) 500 MG TABLET PO SCH ×2 (08:22→21:42)
--- NOTE | 2017-05-08 11:51 | Psychiatry Progress Note ---
Date of Encounter: 05/08/17 Time of Encounter: 11:48 Subjective Interval history: Client has been a placement issue. Awaiting call from outpatient providers in [facility]. Will need their assistance with discharge planning. Client is likely near his baseline. At a certain point hospitalization will be counterproductive as client will get bored and start to act out. Staff have already noted that he is isolating and sleeping more. Wanted prn Haldol this morning. Client told this health science writer it was for AH but staff suspect he just wanted to sleep. Psychotic symptoms are still present but much improved. Likely has symptoms at his baseline secondary to severity of illness and years of noncompliance. Review of Systems Constitutional: Denies: fever, chills, weakness, weight change Eyes: Denies: eye pain, vision change Ears, Nose, Throat: Denies: ear pain, throat pain, dental pain, hearing loss, congestion Cardiovascular: Denies: chest pain, palpitations, dyspnea on exertion Respiratory: Denies: cough, dyspnea, wheezes Gastrointestinal: Denies: abdominal pain, nausea, vomiting, diarrhea, constipation Musculoskeletal: Denies: joint swelling, joint pain Neurological: Denies: headache, weakness, numbness, memory loss Psychiatric: Reports: depression, abnormal sleep pattern, difficulty concentrating, irritability Objective: Exam Patient orientation: Yes Person, Yes Time, Yes Place Level of alertness: Alert Patient appearance: Appropriate Behavior: calm, cooperative Psychomotor activity: Normal Eye contact: Intense Contact Mood description: Euthymic/stable Affect description: blunted Speech pattern: Normal rate, Normal rhythm, Normal tone Speech volume: Normal Thought process: [place] Thought content: No Suicidal ideation, No Homicidal ideation, Yes Samaritan delusion Perceptual disturbances: Yes Auditory hallucinations Judgment: Limited Insight: Partial Results - Vital Signs Vital Signs: Temp Pulse Resp BP Pulse Ox 98.8 F 93 16 120/71 94 05/08/17 09:00 05/08/17 09:00 05/08/17 09:00 05/08/17 09:00 04/30/17 14:25 Assessment and Plan (1) Bipolar disorder with psychotic features Current visit: No Status: Acute Plan: Continue hospitalization, Close observation, Suicide Precautions per unit protocol, Encourage participation in unit milieu, Group Therapy, Monitor sleep, Monitor appetite Risks, benefits, side effects, alternatives discussed w/pt: Yes Patient agreeable to treatment: Yes Consult Discharge Plan - Plan Referrals: NO,PCP [Primary Care Provider] -
[2017-05-08] MEDS: traZODone 50 MG TABLET PO PRN (21:42)
[2017-05-09] MEDS: Loratadine 10 MG TABLET PO SCH (09:56)
[2017-05-09] MEDS: Cholecalciferol (D-3) 1,000 UNIT TABLET PO SCH (09:57)
[2017-05-09] MEDS: Multivit/Ca/Min/Fe/FA 1 TAB TABLET PO SCH (09:57)
[2017-05-09] MEDS: Divalproex (24 HR) 500 MG TABLET PO SCH ×2 (09:57→21:09)
--- NOTE | 2017-05-09 11:35 | Psychiatry Progress Note ---
Date of Encounter: 05/09/17 Time of Encounter: 11:31 Subjective Interval history: Client continues to ask for prns for auditory hallucinations. Staff suspect he wants the medications to keep himself calm and sleep. Starting to get bored. Extra meds may be keeping behaviors in check. Discussed going up on scheduled med doses today but client is resistant. Still working on placement. turn down worker spent a long time on the phone with his home county on Thursday trying to make discharge plans but given client's history he is difficult to secure housing for. Review of Systems Constitutional: Denies: fever, chills, weakness, weight change Eyes: Denies: eye pain, vision change Ears, Nose, Throat: Denies: ear pain, throat pain, dental pain, hearing loss, congestion Cardiovascular: Denies: chest pain, palpitations, dyspnea on exertion Respiratory: Denies: cough, dyspnea, wheezes Gastrointestinal: Denies: abdominal pain, nausea, vomiting, diarrhea, constipation Musculoskeletal: Denies: joint swelling, joint pain Neurological: Denies: headache, weakness, numbness, memory loss Psychiatric: Reports: depression, abnormal sleep pattern, difficulty concentrating, irritability Objective: Exam Patient orientation: Yes Person, Yes Time, Yes Place Level of alertness: Alert Patient appearance: Unkempt Behavior: calm, cooperative Psychomotor activity: Normal Eye contact: Intense Contact Mood description: Irritable Affect description: congruent with mood Speech pattern: Normal rate, Normal rhythm, Normal tone Speech volume: Normal Thought process: Linear Thought content: No Suicidal ideation, No Homicidal ideation, Yes [place] delusion Perceptual disturbances: Yes Auditory hallucinations Judgment: Limited Insight: Minimal Results - Vital Signs Vital Signs: Temp Pulse Resp BP Pulse Ox 98.2 F 93 16 120/78 94 05/08/17 21:00 05/08/17 21:00 05/08/17 21:00 05/08/17 21:00 04/30/17 14:25 Assessment and Plan (1) Bipolar disorder with psychotic features Current visit: No Status: Acute Plan: Continue hospitalization, Close observation, Suicide Precautions per unit protocol, Encourage participation in unit milieu, Group Therapy, Monitor sleep, Monitor appetite Risks, benefits, side effects, alternatives discussed w/pt: Yes Patient agreeable to treatment: Yes Consult Discharge Plan - Plan Referrals: NO,PCP [Primary Care Provider] -
[2017-05-09] MEDS: traZODone 50 MG TABLET PO PRN (21:10)
--- NOTE | 2017-05-10 09:17 | Psychiatry Progress Note ---
Date of Encounter: 05/10/17 Time of Encounter: 09:12 Subjective Interval history: Continues to request prns. Spoke to client today about this. Although he has consistently denied AH to this insurance underwriter he admitted today that he is still hearing them. He is not interacting and mostly stays in his room. Admits he hears the voices more when he is alone in his room but this is where he is choosing to be. Discussed increasing doses of scheduled meds. He has been resistant to this idea but relented today. Part of his prn usage is likely a desire to sleep/stay medicated as he is frustrated with being here and nervous about where he will end up at the time of discharge. He is aware he has burned bridges with his past behaviors. Hopefully, by increasing his scheduled meds he can cut back on the prns and attempt to be out of his room more. Review of Systems Constitutional: Denies: fever, chills, weakness, weight change Eyes: Denies: eye pain, vision change Ears, Nose, Throat: Denies: ear pain, throat pain, dental pain, hearing loss, congestion Cardiovascular: Denies: chest pain, palpitations, dyspnea on exertion Respiratory: Denies: cough, dyspnea, wheezes Gastrointestinal: Denies: abdominal pain, nausea, vomiting, diarrhea, constipation Musculoskeletal: Denies: joint swelling, joint pain Neurological: Denies: headache, weakness, numbness, memory loss Psychiatric: Reports: depression, abnormal sleep pattern, difficulty concentrating, irritability Objective: Exam Patient orientation: Yes Person, Yes Time, Yes Place Level of alertness: Alert Patient appearance: Unkempt Behavior: calm, cooperative Psychomotor activity: Normal Eye contact: Intense Contact Mood description: Anxious Affect description: constricted Speech pattern: Normal rate, Normal rhythm, Normal tone Speech volume: Normal Thought process: Linear Thought content: No Suicidal ideation, No Homicidal ideation, Yes Oriental Orthodox delusion Perceptual disturbances: Yes Auditory hallucinations Judgment: Limited Insight: Partial Results - Vital Signs Vital Signs: Temp Pulse Resp BP Pulse Ox 98.4 F 93 16 128/87 94 05/09/17 21:00 05/09/17 21:00 05/09/17 21:00 05/09/17 21:00 04/30/17 14:25 Assessment and Plan (1) Bipolar disorder with psychotic features Current visit: No Status: Acute Plan: Continue hospitalization, Close observation, Suicide Precautions per unit protocol, Encourage participation in unit milieu, Group Therapy, Monitor sleep, Monitor appetite Risks, benefits, side effects, alternatives discussed w/pt: Yes Patient agreeable to treatment: Yes Consult Discharge Plan - Plan Referrals: NO,PCP [Primary Care Provider] -
[2017-05-10] MEDS: Multivit/Ca/Min/Fe/FA 1 TAB TABLET PO SCH (09:46)
[2017-05-10] MEDS: Cholecalciferol (D-3) 1,000 UNIT TABLET PO SCH (09:47)
[2017-05-10] MEDS: Divalproex (24 HR) 500 MG TABLET PO SCH ×2 (09:47→20:56)
[2017-05-10] MEDS: Loratadine 10 MG TABLET PO SCH (09:47)
[2017-05-10] MEDS: traZODone 50 MG TABLET PO PRN (20:56)
[2017-05-11] MEDS: Loratadine 10 MG TABLET PO SCH (09:26)
[2017-05-11] MEDS: Cholecalciferol (D-3) 1,000 UNIT TABLET PO SCH (09:27)
[2017-05-11] MEDS: Divalproex (24 HR) 500 MG TABLET PO SCH (09:27)
[2017-05-11] MEDS: Multivit/Ca/Min/Fe/FA 1 TAB TABLET PO SCH (09:27)
[2017-05-11] MEDS: Mag Hydrox/Al Hydrox/Simeth 30 ML UDC PO PRN (09:29)
--- NOTE | 2017-05-11 09:45 | Discharge Summary ---
Date of Encounter: 05/11/17 Time of Encounter: 09:43 Diagnosis - Discharge Diagnosis (1) Bipolar disorder with psychotic features Status: Resolved Medications - Discharge Medications Prescriptions: Divalproex (24 HR) [Depakote ER (24 HR)] 1,000 mg PO QAM #60 Divalproex (24 HR) [Depakote ER (24 HR)] 1,500 mg PO HS #90 Fluphenazine [Prolixin] 15 mg PO BID #60 tab Lisinopril [Zestril] 5 mg PO DAILY #30 tablet traZODone [TraZODone] 50 mg PO HS PRN #30 tablet PRN Reason: insomnia/may repeat in 1 hour Cholecalciferol (Vitamin D3) [Vitamin D3] 5,000 unit PO DAILY #30 tab.chew 01/23 [Rx] Melatonin 3 mg PO HS #30 tablet 01/23/17 [Rx] Mv-Mn/FA/Vit K/Lycop/Lut/Coq10 [Daily Multivitamin Capsule] 1 cap PO DAILY #30 capsule 01/23/17 [Rx] Omeprazole [PriLOSEC] 20 mg PO DAILY 05/01/17 [History] Dicyclomine [Bentyl] 20 mg PO Q6H PRN 05/11/17 [Rx] Divalproex (24 HR) [Depakote ER (24 HR)] 1,000 mg PO QAM #60 05/11/17 [Rx] Divalproex (24 HR) [Depakote ER (24 HR)] 1,500 mg PO HS #90 05/11/17 [Rx] Fluphenazine [Prolixin] 15 mg PO BID #60 tab 05/11/17 [Rx] Lisinopril [Zestril] 5 mg PO DAILY #30 tablet 05/11/17 [Rx] Loratadine [Claritin] 10 mg PO DAILY tab 05/11/17 [Rx] Multivit/Ca/Min/Fe/FA [Thera M Plus] 1 tab PO DAILY tab 05/11/17 [Rx] traZODone [TraZODone] 50 mg PO HS PRN #30 tablet 05/11/17 [Rx] Allergies No Known Allergies Allergy (Verified 04/30/17 14:28) Provider Date of admission: 04/30/17 17:44 Primary care physician: PCP NO Consults: 05/06/17 12:02 Consult to Pastoral Services [CONS] Routine Comment: Discharging clinician: Jessenia Hickey Assessment and Plan - Patient/Caregiver Discharge Instructions Activity: resume usual activities as tolerated Diet: regular diet, low fat, low cholesterol - Follow up Plan [facility] with: [facility] [Other] (Your CPST worker, Noe Rapp, will pick you up on discharge from the hospital and arrange further outpatient visits. You will also see Dr. Rand for outpatient psychiatric assessment and medication management on 06/04/2017 at 2:15pm.) Disposition: Home, Self-Care Hospital Course Hospital course: Mr. Prado is a 27 year old male caucadian's A history of bipolar disorder with psychotic features, medical h/o of Hypertention and GERD, h/o multipe inpatient hspitalizations, who presented to the hospital with complaints of increasing auditory hallucination homelessness and decrease need for sleep the last 4-5. Patient was admitted on the inpatient unit on 05/01/2017. on presentation patient admitted being ogg his medications the last couple of month. He also endorsed he has not been eating or sleeping well week for 5-6 days patient was not motivated to be afebrile on the unit and religiously preoccupied During his stay in the hospital,his medications were reconciled to which he has been consistently compliant with no noted side effects.He gradually responding to his medications and currently at hid baseline. He was seen and evaluated this morning. He was calm, cooprative and well related. He admitted to doing well with no specific complaints. He is sleeping and eatimg well. On review of symptoms, he denied recent mood or psychotic symptoms including symptoms of depression or do, AH/VH/SI/HI. Patient is currently stabilzed on Depakote 2500mh daily and Prolixin 15mg BID. Patient is at present time logical, goal directed with fair insight, impulse control and judgment and not deem a risk to self or others at present time. Time spent discussing smoking cessation with patient: 3 to 10 minutes (Entered but SECONDARY TO PHYSICAL SAY IS A 27-YEAR-OLD MALE INSISTED THEN YOU HAVE TO ACTUALLY QUITE ANIMATED AND INTACT AND THE PATIENT'S HOSPITAL) - Time Spent with Patient Total time spent providing and/or coordinating discharge services: Quality - Multiple Antipsychotics Patient discharged on 2 or more antipsychotic medications: No Mental Status Exam - Mental Status Exam Patient orientation: Yes Person, Yes Time, Yes Place Level of alertness: Alert Patient appearance: Appropriate, Well Groomed Behavior: calm, cooperative Psychomotor activity: Normal Eye contact: Maintains Eye Contact Mood description: Euthymic/stable Affect description: congruent with mood, full range Speech pattern: Normal rate, Normal rhythm, Normal tone Speech Volume: Normal Thought process: Linear, Goal Oriented Thought Content: No Suicidal ideation, No Homicidal ideation, No Overt delusions Perceptual Disturbances: No Auditory hallucinations, No Visual hallucinations Judgment: Fair Insight: Partial
[2017-05-11 09:57] VITALS: BP 134/85
== END 2017-05-11 11:42 | disposition home or self-care (01) | DRG 753 ==
LOC: EMEROO 14:23 → SUATTDRO 17:44 → 1ANU 17:44
PROVIDERS: ADMIT Student in an Organized Health Care Education/Training Program; ATTEND Psychiatry & Neurology Psychiatry